=== PATIENT | female | born 1985 | race Caucasian/White ===

== ENCOUNTER 2019-07-13 15:55 | Outpatient (CLI) | payer OTHER, SELFPAY ==
[2019-07-13 16:11] LABS: Basophils Absolute Auto 0.03 K/mm3 (0.00-0.10); Basophils Percent Auto 0.4 % (0.0-1.0); Eosinophils Absolute Auto 0.06 K/mm3 (0.02-0.50); Eosinophils Percent Auto 0.7 % (1.0-6.0); Hematocrit 41.1 % (35.0-49.0); Hemoglobin 13.4 g/dL (12.0-15.0); Immature Granulocyte Absolute 0.02 K/mm3 (0.00-0.00); Immature Granulocyte Percent A 0.2 % (0.0-0.0); Lymphocytes Absolute Auto 2.32 K/mm3 (1.10-4.50); Lymphocytes Percent Auto 27.6 % (18.0-42.0); Mean Corpuscular HGB Conc 32.6 g/dL (32.0-36.0); Mean Corpuscular Hemoglobin 29.7 pg (27.0-31.0); Mean Corpuscular Volume 91.1 fL (78.0-102.0); Mean Platelet Volume 11.2 fl (9.2-11.8); Monocytes Percent Auto 7.1 % (2.0-11.0); Neutrophils Absolute Auto 5.4 K/mm3 (1.7-7.2); Platelet Count Result 243 K/mm3 (150-420); Red Blood Count 4.51 M/mm3 (4.20-5.40); Red Cell Distribution Width 11.9 % (11.6-14.4); White Blood Count 8.4 K/mm3 (4.8-10.8)
[2019-07-13 17:27] LABS: Alanine Aminotransferase 35 U/L (14-59); Albumin Level 4.4 g/dL (3.4-5.0); Alkaline Phosphatase 57 U/L (46-116); Anion Gap 12.6 mmol/L (7-16); Aspartate Amino Transferase 21 U/L (15-37); Bilirubin,Total 0.5 mg/dL (0.00-1.00); Blood Urea Nitrogen 12 mg/dL (7-18); Calcium 9.2 mg/dL (8.5-10.1); Carbon Dioxide 30 mmol/L (21-32); Chloride 105 mmol/L (98-108); Estimated Glomerular Filt Rate > 60; Glucose 73 mg/dL (70-99); Osmolality Calculated 294 mOsm/kg (285-295); Potassium 4.6 mmol/L (3.5-5.1); Sodium 143 mmol/L (136-145); Total Protein 7.6 g/dL (6.4-8.2)
== END 2019-07-13 15:56 | disposition home or self-care (01) ==
LOC: CHSLAB 15:57
PROVIDERS: PCP Family Medicine; Visit Provider Family Medicine
DX: R10.31 Right lower quadrant pain (principal)
CPT/HCPCS: 36415; 80053; 85025

== ENCOUNTER 2019-07-30 18:13 | Emergency (ER) | payer OTHER, SELFPAY ==
[2019-07-30 18:22] VITALS: BP 123/72; PULSE 70; RESP 16; TEMP 36.5; O2SAT 100
--- NOTE | 2019-07-30 18:45 | ECG_ITS ---
Measurements Intervals [place] Rate: 68 P: 61 NV: 154 QRS: 63 QRSD: 96 T: 46 QT: 379 QTc: 404 Interpretive Statements SINUS RHYTHM INCOMPLETE RIGHT BUNDLE BRANCH BLOCK BORDERLINE ECG Electronically Signed On 07-31-2019 7:15:34 RETAIL LOAN ORIGINATOR ASSISTANT by Butch Hale D.O.
[2019-07-30 19:09] LABS: Basophils Absolute Auto 0.03 K/mm3 (0.00-0.10); Basophils Percent Auto 0.4 % (0.0-1.0); Eosinophils Absolute Auto 0.13 K/mm3 (0.02-0.50); Eosinophils Percent Auto 1.9 % (1.0-6.0); Hematocrit 39.3 % (35.0-49.0); Hemoglobin 13.2 g/dL (12.0-15.0); Immature Granulocyte Absolute 0.03 K/mm3 (0.00-0.00); Immature Granulocyte Percent A 0.4 % (0.0-0.0); Lymphocytes Absolute Auto 2.57 K/mm3 (1.10-4.50); Lymphocytes Percent Auto 36.8 % (18.0-42.0); Mean Corpuscular HGB Conc 33.6 g/dL (32.0-36.0); Mean Corpuscular Hemoglobin 30.1 pg (27.0-31.0); Mean Corpuscular Volume 89.5 fL (78.0-102.0); Mean Platelet Volume 10.9 fl (9.2-11.8); Monocytes Absolute Auto 0.47 K/mm3 (0.10-0.90); Monocytes Percent Auto 6.7 % (2.0-11.0); Neutrophils Absolute Auto 3.8 K/mm3 (1.7-7.2); Neutrophils Percent Auto 53.8 % (50.0-70.0); Platelet Count Result 230 K/mm3 (150-420); Red Blood Count 4.39 M/mm3 (4.20-5.40); Red Cell Distribution Width 11.9 % (11.6-14.4)
[2019-07-30 19:25] LABS: D Dimer 0.21 mg/L (0.19-0.50)
[2019-07-30 19:27] LABS: Alanine Aminotransferase 28 U/L (14-59); Albumin Level 4.2 g/dL (3.4-5.0); Alkaline Phosphatase 54 U/L (46-116); Anion Gap 12.9 mmol/L (7-16); Aspartate Amino Transferase 21 U/L (15-37); Bilirubin,Total 0.4 mg/dL (0.00-1.00); Blood Urea Nitrogen 13 mg/dL (7-18); Calcium 9.1 mg/dL (8.5-10.1); Carbon Dioxide 30 mmol/L (21-32); Chloride 104 mmol/L (98-108); Estimated CRCL calculation 64 ml/min; Estimated Glomerular Filt Rate > 60; Glucose 80 mg/dL (70-99); Osmolality Calculated 295 mOsm/kg (285-295); Potassium 3.9 mmol/L (3.5-5.1); Sodium 143 mmol/L (136-145); Total Protein 7.6 g/dL (6.4-8.2)
--- NOTE | 2019-07-30 19:45 | ED.CHESTPAIN ---
HPI - Chest Pain General Chief Complaint: Chest Pain Stated Complaint: chest pain Source: patient Mode of arrival: ambulatory Limitations: no limitations History of Present Illness HPI narrative: this is a 34-year-old female with no significant past medical history currently not a smoker not on control in a long history of travel, recently had exposure to a viral syndrome with some runny nose mild coughing and pain in her left lower chest and rib area with deep inspiration are currently no cough no shortness of breath the pain has resolved she says it is episodic and comes and goes mainly with deep inspiration with no nausea or vomiting and no chest pressure no radiation into her left arm or jaw or neck area no diaphoresis. complaint: chest pain Onset (ago): day(s) Timing of current episode: episodic and now resolved Onset: other ( deep inspiration) Pain radiation: none Quality: dull Context: recent illness Related Data Allergies Allergy/AdvReac Type Severity Reaction Status Date / Time No Known Allergies Allergy Unknown Verified 01/21/17 08:08 Review of Systems Review of Systems: All systems reviewed & are unremarkable except as noted in HPI and below PMFSH Past Medical History Medical History Migraine Surgical History Surgical History History of ovarian cystectomy laparoscopy Family History Family History Grandparent Hypertension Acute myocardial infarction Lymphoma Mother Thyroid cancer Social History Social History Smoking status: Never smoker Alcohol intake: never Substance use: unknown Additional occupation/education comments: cosomotologist Exam Const: General: no acute distress and alert Orientation/consciousness: patient oriented x3 HENMT: Head: normal to inspection Eyes: Pupils: Equal, round and reactive pupils present Neck: Neck: normal visual inspection and no lymphadenopathy Chest: Chest palpation & inspection: abnormal inspection of the chest Resp: Effort & Inspection: normal respiratory effort Auscultation: clear to auscultation bilaterally Cardio: Rate: regular rate Rhythm: regular rhythm GI: Auscultation: normal bowel sounds : General: Yes no CVA tenderness Back/Spine/Pelvis: Back: no CVA tenderness Skin: General skin exam: normal color Rashes: no rashes Neuro: General: patient oriented x3, moves all extremities, no meningeal signs and no focal motor deficits Extrem: General: normal to inspection and no pedal edema Psych: Mental Status: mental status grossly normal Course Vital Signs Vital signs: Vital Signs Temperature 36.5 C 07/30/19 18:22 Pulse Rate 70 07/30/19 18:22 Respiratory Rate 16 07/30/19 18:22 Blood Pressure 123/72 07/30/19 18:22 Pulse Oximetry 100 07/30/19 18:22 Temperature 36.5 C 07/30/19 18:22 Pulse Rate 70 07/30/19 18:22 Respiratory Rate 16 07/30/19 18:22 Blood Pressure 123/72 07/30/19 18:22 Pulse Oximetry 100 07/30/19 18:22 MDM - Chest Pain Lab Data Attestation: I reviewed the patient's lab results. Result diagrams: 07/30/19 19:05 07/30/19 19:05 Labs: Lab Results 07/30/19 07/30/19 07/30/19 Range/Units 19:05 19:05 19:05 WBC 7.0 (4.8-10.8) K/mm3 RBC 4.39 (4.20-5.40) M/mm3 Hgb 13.2 (12.0-15.0) g/dL Hct 39.3 (35.0-49.0) % MCV 89.5 (78.0-102.0) fL MCH 30.1 (27.0-31.0) pg MCHC 33.6 (32.0-36.0) g/dL RDW 11.9 (11.6-14.4) % Plt Count 230 (150-420) K/mm3 MPV 10.9 (9.2-11.8) fl Immature Gran % (Auto) 0.4 H (0.0-0.0) % Neut % (Auto) 53.8 (50.0-70.0) % Lymph % (Auto) 36.8 (18.0-42.0) % [place] % (Auto) 6.7 (2.0-11.0) % Eos % (Auto) 1.9 (1.0-6.0) % Baso % (
[2019-07-30 20:02] VITALS: BP 108/66; PULSE 67; RESP 16; O2SAT 100
== END 2019-07-30 20:03 | disposition home or self-care (01) ==
PROVIDERS: Emergency Provider Emergency Medicine; PCP Family Medicine
DX: R09.1 Pleurisy (principal)
CPT/HCPCS: 36415; 80053; 85025; 85380; 93005; 99283

== ENCOUNTER 2019-12-15 07:47 | Outpatient (CLI) | payer OTHER, SELFPAY ==
--- NOTE | ~2019-12-15 | US_ITS ---
US right upper quadrant INDICATION: Right upper quadrant pain PROCEDURE: Realtime right upper abdominal ultrasound. COMPARISON: No prior studies for comparison. FINDINGS: The pancreas is normal without focal mass or pancreatic ductal dilation. Liver echotexture is normal without focal mass or intrahepatic biliary dilatation. There is normal directional flow i n the portal vein. The gallbladder is normal without stones, gallbladder wall thickening or pericholecystic fluid. Comm on bile duct measures 3 mm. No sonographic Gonzalez's sign. IMPRESSION: 1: Normal limited abdominal ultrasound. Reviewed, dictated and finalized at location B.
== END 2019-12-15 07:48 | disposition home or self-care (01) ==
LOC: ANHIMG 07:50
PROVIDERS: PCP Family Medicine; Visit Provider Surgery
DX: R10.11 Right upper quadrant pain (principal)
CPT/HCPCS: 76705

== ENCOUNTER 2020-06-10 16:28 | Outpatient (CLI) | payer OTHER, SELFPAY ==
--- NOTE | ~2020-06-10 | US_ITS ---
EXAMINATION: US OB limited EXAM DATE: 06/10/2020 17:42 INDICATION: Leaking @ 23 weeks. Check amniotic fluid index. 2nd trimester. TECHNIQUE: Pelvic obstetrical transabdominal sonogram was performed by a technologist. There are mu ltiple grayscale and Doppler images available for interpretation. There are no earlier studies of th is gestation for comparison. FINDINGS: There is a single fetus identified in vertex presentation with a heart rate of 131 beats p er minute. The placenta is located in the posterior position. There is no sonographic evidence of re troplacental hemorrhage identified. The amniotic fluid index is 14.4 centimeters, which is normal. IMPRESSION: 1. Single fetus in vertex presentation with heart rate 131 beats per minute. 2. Normal TIMUR 14.4 cm. Reviewed, dictated and finalized at location A. ATION SPECIALIST
[2020-06-10 17:00] VITALS: BP 115/73; PULSE 82
[2020-06-10 17:15] VITALS: BP 108/67; PULSE 82
--- NOTE | 2020-06-10 17:23 | PC.NURSE ---
Dr Blancas notified of adm c/o leaking, negative ROM plus, Uterine irritability. US ordered.
--- NOTE | 2020-06-10 17:23 | PM.OBTRLD ---
OB - Triage/Final Diagnosis Visit Information Date of evaluation: 06/10/20 Reason for evaluation: other (leaking fluid) Evaluation Vital signs: Vital Signs - 24 hr 06/10/20 17:00 06/10/20 17:15 Pulse Rate 82 82 Blood Pressure 115/73 108/67
[2020-06-10 17:54] VITALS: BP 115/73; PULSE 83
[2020-06-10 18:09] LABS: Add Urine Microscopic? NO; Appearance Urine Clear (Clear); Bilirubin Urine Negative (Negative); Blood Urine Negative (Negative); Color Urine Colorless (Yellow); Glucose Urine UA Negative (Negative); Ketones Urine Negative (Negative); Leukocyte Esterase Ur Negative LEU/UL (NEGATIVE); Nitrate Urine Negative (Negative); Protein Urine Negative (Negative); Specific Grav Ur 1.009 (1.001-1.035); Urobilinogen Urine Negative mg/dL (<2.0)
== END 2020-06-10 17:57 | disposition home or self-care (01) ==
LOC: ANHOBOP 16:33 → ANHOBPP 16:33
PROVIDERS: PCP Family Medicine; Visit Provider Obstetrics & Gynecology
DX: O42.90 Premature rupture of membranes, unspecified as to length of time between rupture and onset of labor, unspecified weeks of gestation (principal); Z3A.23 23 weeks gestation of pregnancy
CPT/HCPCS: 59025; 76815; 81003; 84112; 87086; 99199

== ENCOUNTER 2020-07-21 09:23 | Outpatient (RCR) | payer OTHER, SELFPAY ==
[2020-07-22] MEDS: RHO(D) IMMUNE GLOBULIN 300 MCG SYRINGE IM (17:02)
== END 2020-10-19 23:59 | disposition home or self-care (01) ==
LOC: ANHLAB 09:23
PROVIDERS: PCP Family Medicine; Visit Provider Obstetrics & Gynecology
DX: Z29.13 Encounter for prophylactic Rho(D) immune globulin (principal); O36.0190 Maternal care for anti-D [Rh] antibodies, unspecified trimester, not applicable or unspecified; O09.519 Supervision of elderly primigravida, unspecified trimester; Z3A.00 Weeks of gestation of pregnancy not specified
CPT/HCPCS: 36415; 85461; 90384; 96372; J2790

== ENCOUNTER 2020-09-01 17:10 | Outpatient (CLI) | payer OTHER, SELFPAY ==
[2020-09-01 19:37] LABS: SARS-CoV-2 RNA PCR Negative (Negative)
== END 2020-09-01 17:11 | disposition home or self-care (01) ==
LOC: CHSLAB 17:13
PROVIDERS: PCP Family Medicine; Visit Provider Nurse Practitioner Family
DX: J06.9 Acute upper respiratory infection, unspecified (principal); Z20.822 Contact with and (suspected) exposure to COVID-19
CPT/HCPCS: C9803; U0003; U0005

== ENCOUNTER 2020-09-26 13:00 | Outpatient (CLI) | payer OTHER, SELFPAY ==
[2020-09-26 13:29] VITALS: BP 119/86; PULSE 92
[2020-09-26 13:43] LABS: Basophils Percent Auto 0.1 % (0.2-1.2); Eosinophils Percent Auto 0.3 % (0-4.4); Hematocrit 33.1 % (37.0-47.0); Hemoglobin 10.3 g/dL (12.0-15.0); Immature Granulocyte Absolute 0.05 K/mm3 (0.00-0.031); Immature Granulocyte Percent A 0.6 % (0-0.5); Immature Platelet Fraction Pct 20.9 % (0.9-11.2); Lymphocytes Absolute Auto 1.32 K/mm3 (0.9-3.2); Mean Corpuscular HGB Conc 31.1 g/dl (32-36); Mean Corpuscular Hemoglobin 25.9 pg (26-34); Mean Corpuscular Volume 83.2 fl (80-100); Mean Platelet Volume 12.9 fl (7.4-10.4); Monocytes Absolute Auto 0.5 K/mm3 (0.1-0.6); Monocytes Percent Auto 6.7 % (2.6-8.5); Neutrophils Absolute Auto 5.9 K/mm3 (1.3-6.7); Neutrophils Percent Auto 75.3 % (45.5-73.1); Platelet Count Result 174 k/mm3 (150-375); Red Blood Count 3.98 M/mm3 (4.2-5.4); Red Cell Distribution Width 14.4 % (11.5-14.5); White Blood Count 7.8 K/mm3 (4.5-10.0)
[2020-09-26 13:45] VITALS: BP 128/85; PULSE 77
[2020-09-26 13:46] LABS: Add Urine Microscopic? YES; Appearance Urine Cloudy (Clear); Bacteria Urine Trace /hpf; Bilirubin Urine Negative (Negative); Blood Urine Negative (Negative); Color Urine Yellow (Yellow); Glucose Urine UA Negative (Negative); Ketones Urine Negative (Negative); Leukocyte Esterase Ur Negative LEU/UL (NEGATIVE); Nitrate Urine Negative (Negative); Protein Urine 1+ mg/dL (Negative); RBC Urine 0-2 /hpf (0-2); Specific Grav Ur 1.018 (1.001-1.035); Squamous Epithelial Cell Urine Occasional /hpf (Few); Urobilinogen Urine Negative mg/dL (<2.0); WBC Urine 0-3 /hpf (0-3)
[2020-09-26 13:50] LABS: Alanine Aminotransferase 12 U/L (4-35); Albumin Level 3.8 g/dL (3.5-5.1); Alkaline Phosphatase 138 U/L (38-126); Anion Gap 4 mmol/L (8-16); Aspartate Amino Transferase 28 U/L (14-36); Bilirubin,Total 0.5 mg/dL (0.2-1.3); Blood Urea Nitrogen 10 mg/dL (7-17); Calcium 9.2 mg/dL (8.4-10.2); Carbon Dioxide 24 mmol/L (22-30); Chloride 105 mmol/L (98-107); Estimated Glomerular Filt Rate > 60; Glucose 94 mg/dL (65-105); Potassium 4.2 mmol/L (3.4-5.0); Sodium 133 mmol/L (137-145); Uric Acid 5.1 mg/dL (2.5-7.5)
[2020-09-26 14:01] VITALS: BP 128/77; PULSE 84
== END 2020-09-26 14:20 | disposition home or self-care (01) ==
LOC: ANHOBOP 13:16 → ANHOBPP 13:18
PROVIDERS: PCP Family Medicine; Visit Provider Obstetrics & Gynecology
DX: O13.9 Gestational [pregnancy-induced] hypertension without significant proteinuria, unspecified trimester (principal); Z3A.00 Weeks of gestation of pregnancy not specified
CPT/HCPCS: 36415; 59025; 80053; 81001; 84550; 85025; 85055; 87086; 99199

== ENCOUNTER 2020-09-28 04:52 | Inpatient (IN) | payer OTHER, SELFPAY ==
[2020-09-28] VITALS (63 sets, daily range): BP systolic 101–161; BP diastolic 56–110; PULSE 56–104; RESP 14–20; TEMP 36.4–37.1; O2SAT 97–100
--- NOTE | 2020-09-28 05:36 | LDADM ---
This patient, Urvashi Cain, was admitted to Labor/Delivery/Recovery 103 on 09/28/20 at 04:52. Plans for labor, pain management and were discussed with patient. Patient/family oriented to hospital policies and general routines including ID bracelet, bed and alarms, visiting hours, pain management, procedures, bathroom and other care routines, personal items, smoking policy, room service/diet and guest tray routines, security routines, and visiting hours. Patient/Family are encouraged to report perceived risks to care and to ask questions if they do not understand what they are told or what they should do. See OBIX for further documentation.
[2020-09-28 05:40] LABS: Basophils Percent Auto 0.2 % (0.2-1.2); Eosinophils Absolute Auto 0.1 K/mm3 (0-0.3); Eosinophils Percent Auto 1.3 % (0-4.4); Hematocrit 31.8 % (37.0-47.0); Hemoglobin 9.6 g/dL (12.0-15.0); Immature Granulocyte Absolute 0.08 K/mm3 (0.00-0.031); Immature Granulocyte Percent A 0.9 % (0-0.5); Immature Platelet Fraction Pct 20.5 % (0.9-11.2); Lymphocytes Absolute Auto 2.11 K/mm3 (0.9-3.2); Lymphocytes Percent Auto 24.9 % (18.3-44.2); Mean Corpuscular HGB Conc 30.2 g/dl (32-36); Mean Corpuscular Hemoglobin 25.1 pg (26-34); Mean Corpuscular Volume 83.2 fl (80-100); Mean Platelet Volume 13.4 fl (7.4-10.4); Monocytes Absolute Auto 0.9 K/mm3 (0.1-0.6); Monocytes Percent Auto 10.5 % (2.6-8.5); Neutrophils Absolute Auto 5.3 K/mm3 (1.3-6.7); Neutrophils Percent Auto 62.2 % (45.5-73.1); Platelet Count Result 167 k/mm3 (150-375); Red Blood Count 3.82 M/mm3 (4.2-5.4); Red Cell Distribution Width 14.6 % (11.5-14.5); White Blood Count 8.5 K/mm3 (4.5-10.0)
[2020-09-28] MEDS: LACTATED RINGERS 1,000 ML 125 ML IV CONT ×2 (05:45→08:28)
[2020-09-28] MEDS: OXYTOCIN 30 UNITS/NS 500 ML 30 UNITS/500 ML BAG IV CONT (05:45)
--- NOTE | 2020-09-28 07:56 | PM.IMHP ---
H&P: HPI History of Present Illness Date/Time: 09/28/20 07:56 35-year-old whose last menstrual period was 01/10/2020, EDC is 10/04/2020, presents at39+ weeks gestation for induction of labor. Cervix is favorable and has been uncomplicated. Chief Complaint: induction of labor at term Review of Systems Review of Systems: All systems reviewed & are unremarkable except as noted in HPI and below PMFSH Past Medical History Medical History Migraine Surgical History Surgical History History of ovarian cystectomy laparoscopy Family History Family History Grandparent Acute myocardial infarction Lymphoma Hypertension Mother Thyroid cancer Sibling Crohn disease Father Hypertension Social History Social History Smoking status: Never smoker Alcohol intake: never Substance use: never Additional occupation/education comments: cosomotologist Gender identity (if verbalized by the patient): Female Spiritual care concerns: No Meds Home Medications and Allergies Home Medications Medication Instructions Recorded Confirmed Type No Home Medications 12/22/19 09/08/20 History Allergies Allergy/AdvReac Type Severity Reaction Status Date / Time No Known Allergies Allergy Unknown Verified 12/22/19 08:40 Vital Signs Vital Signs - 24 hr 09/28/20 05:31 09/28/20 05:46 09/28/20 05:57 Temperature 97.5 F L Pulse Rate 83 84 Blood Pressure 134/97 H 141/87 H 09/28/20 06:01 09/28/20 06:16 09/28/20 06:26 Temperature 98.1 F Pulse Rate 81 77 Blood Pressure 144/91 H 144/88 H 09/28/20 06:31 09/28/20 06:46 09/28/20 07:01 Temperature Pulse Rate 72 69 76 Blood Pressure 135/82 120/74 131/85 09/28/20 07:16 09/28/20 07:31 09/28/20 07:46 Temperature Pulse Rate 70 76 68 Blood Pressure 128/79 105/66 108/60 Exam Const: General: no acute distress Eyes: General: appearance normal, both eyes and all related structures Neck: Neck: supple and no JVD Thyroid: thyroid normal Resp: Effort & Inspection: normal respiratory effort Auscultation: clear to auscultation bilaterally Cardio: Rate: regular rate Rhythm: regular rhythm GI: Inspection: non-distended GI Palp: Yes Soft to palpation, No Tenderness to palpation present (GI) and No Guarding due to palpation present (GI) Auscultation: normal bowel sounds : External Female Exam: normal external appearance Speculum Exam - Vagina: normal appearance of the vagina Speculum Exam - Cervix: Cervical os closed (cx 3/75/0. arom clear. fhts ok) Skin: General skin exam: no rashes or lesions noted Extrem: General: normal to inspection and no edema Psych: Mental Status: mental status grossly normal Affect: normal affect H&P: Results Labs Labs: Short CBC 09/28/20 Range/Units 05:19 WBC 8.5 (4.5-10.0) K/mm3 Hgb 9.6 L (12.0-15.0) g/dL Hct 31.8 L (37.0-47.0) % Plt Count 167 (150-375) k/mm3 Assessment and Plan Additional Plan Impression: Term with favorable cervix Plan: Medical induction of labor. Spontaneous vaginal delivery is expected. She has an epidural candidate
--- NOTE | 2020-09-28 10:06 | WPDANESEPP ---
Anes - Eval Pre Procedure Procedure: labor epidural Date/Time: 09/28/20 10:06 Surgeon: carolann Preop Diagnosis: pain during labor Pre Op Diagnosis: Induction Patient Data Age: 35 Gender: F Height: Weight: Last Vital Signs Temp 36.9 C 09/28/20 09:52 Pulse 68 09/28/20 10:01 BP 117/79 09/28/20 10:01 Allergies Allergy/AdvReac Type Severity Reaction Status Date / Time No Known Allergies Allergy Unknown Verified 12/22/19 08:40 Home Medications Medication Instructions Recorded Confirmed Type No Home Medications 12/22/19 09/08/20 History Laboratory Tests 09/28/20 09/28/20 09/28/20 05:18 05:19 05:19 WBC 8.5 K/mm3 K/mm3 (4.5-10.0) RBC 3.82 M/mm3 L M/mm3 (4.2-5.4) Hgb 9.6 g/dL L g/dL (12.0-15.0) Hct 31.8 % L % (37.0-47.0) MCV 83.2 fl fl (80-100) MCH 25.1 pg L pg (26-34) MCHC 30.2 g/dl L g/dl (32-36) RDW 14.6 % H % (11.5-14.5) Plt Count 167 k/mm3 k/mm3 (150-375) MPV 13.4 fl H fl (7.4-10.4) Immature Gran % (Auto) 0.9 % H % (0-0.5) Neut % (Auto) 62.2 % % (45.5-73.1) Lymph % (Auto) 24.9 % % (18.3-44.2) Iron % (Auto) 10.5 % H % (2.6-8.5) Eos % (Auto) 1.3 % % (0-4.4) Baso % (Auto) 0.2 % % (0.2-1.2) Lymph # (Auto) 2.11 K/mm3 K/mm3 (0.9-3.2) Iron # (Auto) 0.9 K/mm3 H K/mm3 (0.1-0.6) Eos # (Auto) 0.1 K/mm3 K/mm3 (0-0.3) Baso # (Auto) 0.0 K/mm3 K/mm3 (0.0-0.1) Abs Immat Gran (auto) 0.08 K/mm3 H K/mm3 (0.00-0.031) Absolute Neuts (auto) 5.3 K/mm3 K/mm3 (1.3-6.7) Absolute Nucleated RBC 0.0 K/mm3 K/mm3 (0.0-0.012) Nucleated RBC % 0.0 % % (0.0-0.2) % Immature Plt Fraction 20.5 % H % (0.9-11.2) RPR Pending Blood Type A Negative Antibody Screen Positive Antibody Identification Passive Due to RH Imm Glob Antigen Identification TNP HALI, IgG Interpret Not Performed HALI, Poly Interpret Negative HALI, Complement Interp Not Performed : gestational age (SHEKHAR 10/04/2020) Patient hx anesthesia problems: none Family hx anesthesia problems: none PMFSH Past Medical History Medical History Migraine Surgical History Surgical History History of ovarian cystectomy laparoscopy Family History Family History Grandparent Acute myocardial infarction Lymphoma Hypertension Mother Thyroid cancer Sibling Crohn disease Father Hypertension Social History Social History Smoking status: Never smoker Alcohol intake: never Substance use: never Additional occupation/education comments: cosomotologist Gender identity (if verbalized by the patient): Female Spiritual care concerns: No Exam Day of Procedure 09/28/20 10:06 Patient weight: normal Heart: regular rate and rhythm Lungs: clear to auscultation and normal air movement Neurological: alert and oriented
[2020-09-28 10:50] LABS: Rapid Plasma Reagin Non-Reactive (NonReactive)
--- NOTE | 2020-09-28 11:14 | P.PNOB_ITS ---
OB - PN: Subj Subjective Date/time seen: 09/28/20 11:14 fhts ok epidural in/working OB - PN: Obj Data Labs CBC & Chem 7: 09/28/20 05:19 Labs: Laboratory Results - last 24 hr 09/28/20 09/28/20 09/28/20 05:18 05:19 05:19 WBC 8.5 RBC 3.82 L Hgb 9.6 L Hct 31.8 L MCV 83.2 MCH 25.1 L MCHC 30.2 L RDW 14.6 H Plt Count 167 MPV 13.4 H Immature Gran % (Auto) 0.9 H Neut % (Auto) 62.2 Lymph % (Auto) 24.9 [place] % (Auto) 10.5 H Eos % (Auto) 1.3 Baso % (Auto) 0.2 Lymph # (Auto) 2.11 [place] # (Auto) 0.9 H Eos # (Auto) 0.1 Baso # (Auto) 0.0 Abs Immat Gran (auto) 0.08 H Absolute Neuts (auto) 5.3 Absolute Nucleated RBC 0.0 Nucleated RBC % 0.0 % Immature Plt Fraction 20.5 H RPR Non-reactive Blood Type A Negative Antibody Screen Positive Antibody Identification Passive Due to RH Imm Glob Antigen Identification TNP HALI, IgG Interpret Not Performed HALI, Poly Interpret Negative HALI, Complement Interp Not Performed OB - PN A/P Time Spent With Patient Time: Total time spent is greater than 50% in coordination of care (as documented) at patient's floor/unit and/or counseling patient:
--- NOTE | 2020-09-28 13:41 | P.PCNOB_ITS ---
OB - Delivery Note Procedure Delivery date: 09/28/20 Procedure: mil Intrapartal events: None Induction method: AROM Delivery augmentation: pitocin Delivery monitor: external FHT Route of delivery: Episiotomy description: None Laceration Description: Perineal - 2nd Degree Delivery repair: vicryl Specimen: No Quantitative Blood Loss (ml): 58 Anesthesia type: Epidural Disposition: floor [place] Baby Date of : 09/28/20 Time of : 13:31 Weeks of gestation at delivery: 39 Infant gender: Female presentation: vertex position: Right Occiput Anterior Placenta delivery description: Spontaneous cord vessel description: 3 Vessels score one minute: 8 score five minutes: 9
[2020-09-28] MEDS: OXYTOCIN 30 UNITS/NS 500 ML 30 UNITS/500 ML BAG 125 UNITS IV CONT (14:05)
[2020-09-28] MEDS: BENZOCAINE 20% AER SPR (*SP) 56 GM CAN 1 SPRAY TOPICAL (16:13)
[2020-09-28] MEDS: WITCH HAZEL 40 PADS 1 PAD TOPICAL (16:13)
--- NOTE | 2020-09-28 16:30 | PC.NURSE ---
Patient transferred to post room #284 per wheelchair from labor and delivery. Support person present. Oriented to unit, room, information board, rooming in, admission packet and security measures. Patient verbalizes understanding.
[2020-09-28] MEDS: IBUPROFEN 600 MG TABLET PO (17:40)
[2020-09-28] MEDS: ACETAMINOPHEN 325 MG TABLET 650 MG PO (22:43)
[2020-09-29 00:10] VITALS: BP 121/62; PULSE 70; RESP 14; TEMP 37.2
[2020-09-29 05:41] LABS: Hematocrit 29.8 % (37.0-47.0); Hemoglobin 9.2 g/dL (12.0-15.0)
[2020-09-29 05:48] VITALS: BP 129/80; PULSE 72; RESP 15; TEMP 37.1
--- NOTE | 2020-09-29 07:48 | PM.DS ---
DS: Admitting Diagnosis Admitting Diagnosis Admitting Diagnosis: Term with favorable cervix DS: Summary Hospital Course Hospital Course: the patient was admitted for induction of labor. She underwent unremarkable spontaneous vaginal delivery. 24hour course was unremarkable. She remained afebrile. She was, ambulating, voiding the difficulty, and generally without complaints Time Spent with Patient Time attestation: Total time spent providing and/or coordinating discharge services: Exam Const: General: no acute distress Eyes: General: appearance normal, both eyes and all related structures Neck: Neck: supple and no JVD Thyroid: thyroid normal Resp: Effort & Inspection: normal respiratory effort Auscultation: clear to auscultation bilaterally Cardio: Rate: regular rate Rhythm: regular rhythm GI: Inspection: non-distended GI Palp: Yes Soft to palpation, No Tenderness to palpation present (GI) and No Guarding due to palpation present (GI) Auscultation: normal bowel sounds : General: Yes bladder normal to palpation External Female Exam: normal external appearance Speculum Exam - Vagina: normal vaginal discharge and No vaginal bleeding Speculum Exam - Cervix: nontender Bimanual exam- vagina & uterus: bladder normal to palpation and No Cervical tenderness present OB/external & speculum: No vaginal bleeding Skin: General skin exam: no rashes or lesions noted Extrem: General: normal to inspection and no edema Psych: Mental Status: mental status grossly normal Affect: normal affect DS: Data Data Completed and Pending Labs on day of discharge: Labs from last 24 hours 09/29/20 09/29/20 09/28/20 05:00 04:59 05:19 Hgb 9.2 L Hct 29.8 L RPR Blood Type A Negative A Negative Antibody Screen TNP Positive Antibody Identification Passive Due to RH Imm Glob Antigen Identification TNP HALI, IgG Interpret Not Performed HALI, Poly Interpret Negative HALI, Complement Interp Not Performed Screen Negative Baby's Blood Type O pos Baby's HALI Negative Doses of RhIg Required 1 09/28/20 05:18 Hgb Hct RPR Non-reactive Blood Type Antibody Screen Antibody Identification Antigen Identification HALI, IgG Interpret HALI, Poly Interpret HALI, Complement Interp Screen Baby's Blood Type Baby's HALI Doses of RhIg Required Discharge Plan Discharge Attending physician on discharge: Israel Day Discharging Clinician: Israel Day Patient Disposition: Home, Self-Care Activity: may shower, no straining and pelvic rest Diet: heart healthy Wound Care Instructions: follow printed instructions Patient Instructions: Antibiotic Form Stand Alone Forms: General Discharge Information Follow-up/Referrals: Israel Day MD [Physician] - Discharge Medications: No Action No Home Medications RF: 0 Date of admission: 09/28/20 04:52 Primary Care Provider: Cem Carrillo Admitting Provider: Israel Day Attending physician on admission: Israel Day Condition: Stable
--- NOTE | 2020-09-29 07:50 | P.PNOB_ITS ---
OB - PN: Subj Subjective Date/time seen: 09/29/20 07:50 Patient comments: no complaints and pain well controlled baby status: doing well OB - PN: Obj Data Labs CBC & Chem 7: 09/29/20 04:59 Labs: Laboratory Results - last 24 hr 09/28/20 09/28/20 09/29/20 05:18 05:19 04:59 Hgb 9.2 L Hct 29.8 L RPR Non-reactive Blood Type A Negative Antibody Screen Positive Antibody Identification Passive Due to RH Imm Glob Antigen Identification TNP HALI, IgG Interpret Not Performed HALI, Poly Interpret Negative HALI, Complement Interp Not Performed Screen Baby's Blood Type Baby's HALI Doses of RhIg Required 09/29/20 05:00 Hgb Hct RPR Blood Type A Negative Antibody Screen TNP Antibody Identification Antigen Identification HALI, IgG Interpret HALI, Poly Interpret HALI, Complement Interp Screen Negative Baby's Blood Type O pos Baby's HALI Negative Doses of RhIg Required 1 OB - PN A/P Plan day: 1 Plan: routine care, discharge home and follow up 6 weeks Time Spent With Patient Time: Total time spent is greater than 50% in coordination of care (as d ocumented) at patient's floor/unit and/or counseling patient: Time with patient: less than 15 minutes Review of Systems Review of Systems: All systems reviewed & are unremarkable except as noted in HPI and below Exam Const: General: no acute distress Eyes: General: appearance normal, both eyes and all related structures Neck: Neck: supple and no JVD Thyroid: thyroid normal Resp: Effort & Inspection: normal respiratory effort Auscultation: clear to auscultation bilaterally Cardio: Rate: regular rate Rhythm: regular rhythm GI: Inspection: non-distended GI Palp: Yes Soft to palpation, No Tenderness to palpation present (GI) and No Guarding due to palpation present (GI) Auscultation: normal bowel sounds : General: Yes bladder normal to palpation External Female Exam: normal external appearance Speculum Exam - Vagina: normal vaginal discharge and No vaginal bleeding Speculum Exam - Cervix: nontender Bimanual exam- vagina & uterus: bladder normal to palpation and No Cervical tenderness present OB/external & speculum: No vaginal bleeding Skin: General skin exam: no rashes or lesions noted Extrem: General: normal to inspection and no edema Psych: Mental Status: mental status grossly normal Affect: normal affect
[2020-09-29 08:00] VITALS: BP 109/64; PULSE 72; RESP 16; TEMP 37; O2SAT 100
[2020-09-29] MEDS: POLYSACCHARIDE IRON COMPLEX 150 MG CAPSULE PO (09:11)
[2020-09-29] MEDS: MULTIVIT/MIN/PREN/FOL AC/IRON TABLET 1 TAB PO (09:11)
[2020-09-29] MEDS: DOCUSATE SODIUM 100 MG CAPSULE PO (09:11)
[2020-09-29] MEDS: IBUPROFEN 600 MG TABLET PO ×2 (09:12)
--- NOTE | 2020-09-29 09:38 | WPDANLDPN2 ---
Anes-Prog Note L&D Date/Time: 09/29/20 09:38 Comfortable throughout: labor and delivery Neuraxial method: epidural Epidural/Spinal procedure site: clean & non-tender Neuro status: Neuro function grossly intact. Cardiovascular status: normal Respiratory status: normal Airway patency: baseline Mental status: baseline Post-Op hydration status: normal Vital Signs: Last Vital Signs Temp 37.0 C 09/29/20 08:00 Pulse 72 09/29/20 08:00 Resp 16 09/29/20 08:00 BP 109/64 09/29/20 08:00 Pulse Ox 100 09/29/20 08:00 Pain score (VAS): 0 I/O: Intake & Output 09/28/20 09/29/20 09/29/20 23:59 07:59 15:59 Output Total 75 Balance -75 Post-procedural complaints: none Patient feedback: Patient satisfied with anesthetic care.
--- NOTE | 2020-09-29 10:40 | PC.NURSE ---
Mother called out for assist with feeding, reporting tenderness at times. Mother reports last child now 6 yrs old. Consulted with patient, reviewed infant feeding cues, frequencies, duration of feedings, feeding elimination flow sheet, and signs of adequate intake. Demonstrated stimulation techniques to wake infant for feeding. Assisted with to breast. Reviewed positioning/alignment in cross cradle, holding breast in U hold and guided asymmetrical latch on. Infant was able to latch correctly. nursed eagerly, with steady draws and frequent swallowing noted. Reviewed signs of a correct latch, effective nursing and suck swallow ratio. Mother reported slight discomfort, has slipped to shallow latch. Demonstrated how to adjust latch more deeply while feeding. Suggested mother stimulate infant while feeding to keep infant awake and nursing effectively for stimulation of milk supply, increased intake and to assist maintain deep latch. Infant was able to maintain latch without discomfort to mother. Nipple care reviewed, lanolin provided. Instructed mother to call out for RN assistance if she is unable to latch for feeding or she has discomfort with nursing. Instructed feeding should be initiated three hours from start of last feeding or if feeding cues are noted before. Mother voiced understanding of information shared.
--- NOTE | 2020-09-29 10:58 | PC.NURSE ---
Patient was given the opportunity to view the discharge video Mother & Baby Care, The First Two Weeks and to ask questions. Patient declined viewing the video and has been given the mother/baby guide for home reference.
[2020-09-29 13:15] VITALS: BP 115/71; PULSE 69; RESP 18; TEMP 37.5; O2SAT 98
[2020-09-29] MEDS: WITCH HAZEL 40 PADS 1 PAD TOPICAL (14:08)
[2020-09-29] MEDS: RHO(D) IMMUNE GLOBULIN 300 MCG/2 ML SYRINGE IM (14:08)
[2020-09-29] MEDS: BENZOCAINE 20% AER SPR (*SP) 56 GM CAN 1 SPRAY TOPICAL (14:08)
--- NOTE | 2020-09-29 15:16 | PC.NURSE ---
Discharged patient with infant to awaiting vehicle. All questions answered and all discharge instructions given to patient.
== END 2020-09-29 15:05 | disposition home or self-care (01) | DRG 560 ==
LOC: ANHLDR 04:54 → ANHOB2 16:40
PROVIDERS: Admitting Provider Obstetrics & Gynecology; PCP Family Medicine; Visit Provider Obstetrics & Gynecology
DX: O70.1 Second degree perineal laceration during delivery (principal); Z37.0 Single live birth; Z3A.39 39 weeks gestation of pregnancy
CPT/HCPCS: 36415; 85014; 85018; 85025; 85055; 85461; 86592; 86850; 86880; 86900; 86901; 86902; 90384; A9270; J2590; J2790; J7120

== ENCOUNTER 2021-01-17 11:47 | Outpatient (CLI) | payer OTHER, SELFPAY ==
[2021-01-17 12:54] LABS: SARS-CoV-2 RNA PCR Positive (Negative)
== END 2021-01-17 11:48 | disposition home or self-care (01) ==
PROVIDERS: PCP Family Medicine; Visit Provider Nurse Practitioner Family
DX: U07.1 COVID-19 (principal)
CPT/HCPCS: C9803; U0003; U0005

== ENCOUNTER 2021-12-13 12:25 | Outpatient (CLI) | payer OTHER, SELFPAY ==
[2021-12-13 12:46] LABS: Basophils Absolute Auto 0.02 K/mm3 (0.00-0.10); Basophils Percent Auto 0.3 % (0.0-1.0); Eosinophils Absolute Auto 0.07 K/mm3 (0.02-0.50); Eosinophils Percent Auto 1.2 % (1.0-6.0); Hematocrit 40.6 % (35.0-49.0); Hemoglobin 13.2 g/dL (12.0-15.0); Immature Granulocyte Absolute 0.01 K/mm3 (0.00-0.00); Immature Granulocyte Percent A 0.2 % (0.0-0.0); Lymphocytes Absolute Auto 1.92 K/mm3 (1.10-4.50); Lymphocytes Percent Auto 32.1 % (18.0-42.0); Mean Corpuscular HGB Conc 32.5 g/dL (32.0-36.0); Mean Corpuscular Hemoglobin 29.7 pg (27.0-31.0); Mean Corpuscular Volume 91.2 fL (78.0-102.0); Mean Platelet Volume 11.5 fl (9.2-11.8); Monocytes Absolute Auto 0.45 K/mm3 (0.10-0.90); Monocytes Percent Auto 7.5 % (2.0-11.0); Neutrophils Absolute Auto 3.5 K/mm3 (1.7-7.2); Neutrophils Percent Auto 58.7 % (50.0-70.0); Platelet Count Result 242 K/mm3 (150-420); Red Blood Count 4.45 M/mm3 (4.20-5.40); Red Cell Distribution Width 12.2 % (11.6-14.4)
[2021-12-13 12:49] LABS: Add Urine Microscopic? YES; Appearance Urine Clear (Clear); Bilirubin Urine Negative (Negative); Blood Urine 1+ (Negative); Color Urine Light Yellow (Yellow); Glucose Urine UA Negative (Negative); Ketones Urine Negative (Negative); Leukocyte Esterase Ur Negative (Negative); Nitrate Urine Negative (Negative); Protein Urine Negative (Negative); Urobilinogen Urine 0.2 mg/dL (0.2-1.0); pH Urine 7.5 (5.0-8.0)
[2021-12-13 12:57] LABS: Bacteria Urine Trace /hpf; RBC Urine 0-2 /hpf (0-2); Squamous Epithelial Cell Urine Few /hpf (Few); WBC Urine None seen /hpf (0-3)
[2021-12-13 13:06] LABS: Alanine Aminotransferase 21 U/L (14-59); Albumin Level 4.1 g/dL (3.4-5.0); Alkaline Phosphatase 96 U/L (46-116); Amylase 47 U/L (25-115); Anion Gap 5 mmol/L (8-16); Aspartate Amino Transferase 13 U/L (15-37); Bilirubin,Total 0.2 mg/dL (0.00-1.00); Blood Urea Nitrogen 12 mg/dL (7-18); Calcium 9.1 mg/dL (8.5-10.1); Carbon Dioxide 30 mmol/L (21-32); Chloride 104 mmol/L (98-108); Estimated Glomerular Filt Rate > 60; Glucose 81 mg/dL (70-99); Lipase 217 U/L (73-393); Osmolality Calculated 286 mOsm/kg (285-295); Potassium 4.8 mmol/L (3.5-5.1); Sodium 139 mmol/L (136-145); Total Protein 7.4 g/dL (6.4-8.2)
[2021-12-13 14:03] LABS: Pregnancy On Board Control Positive; Urine Pregnancy Test Negative
== END 2021-12-13 12:26 | disposition home or self-care (01) ==
LOC: CHSLAB 12:27
PROVIDERS: PCP Family Medicine; Visit Provider Family Medicine
DX: R10.9 Unspecified abdominal pain (principal)
CPT/HCPCS: 36415; 80053; 81001; 81025; 82150; 83690; 85025

== ENCOUNTER 2021-12-14 07:57 | Outpatient (CLI) | payer OTHER, SELFPAY ==
--- NOTE | ~2021-12-14 | US_ITS ---
EXAMINATION: US abdomen complete DATE: 12/14/2021 08:28 INDICATION: Right upper quadrant abdominal pain. TECHNIQUE: Multiple grayscale and Doppler ultrasound images of the abdomen were obtained. COMPARISON: Ultrasound abdomen 12/15/2019 FINDINGS: The visualized portions of the head, body, and tail of the pancreas are normal. Abdominal a shlomo and inferior vena cava are normal. The liver is normal without focal lesion. There is normal roseanna w in main portal vein. The gallbladder is normal in size. No gallstones or gallbladder wall thickenin g. There is no sonographic Gonzalez sign. The common duct is normal and measures 2 mm. The kidneys are normal in size. The spleen is normal in size. IMPRESSION: 1. Normal complete abdomen ultrasound. Reviewed, dictated and finalized at location A.
== END 2021-12-14 07:58 | disposition home or self-care (01) ==
LOC: CHSIMG 07:58
PROVIDERS: PCP Family Medicine; Visit Provider Family Medicine
DX: R10.9 Unspecified abdominal pain (principal)
CPT/HCPCS: 76700

== ENCOUNTER 2022-01-09 11:03 | Emergency (ER) | payer OTHER, SELFPAY ==
[2022-01-09 11:10] VITALS: BP 116/79; PULSE 66; RESP 16; TEMP 36.4; O2SAT 100
--- NOTE | 2022-01-09 11:15 | ED.HA ---
HPI - Headache General Chief Complaint: Headache Stated Complaint: MIGRAINE Time Seen by Provider: 01/09/22 11:57 Source: patient and RN notes reviewed Mode of arrival: ambulatory Limitations: no limitations History of Present Illness MD elicited complaint: migraine Onset (ago): day(s) (2) Onset description: gradually Location: right, frontal, temporal and occipital Severity: moderate Quality & Timing: throbbing Exacerbating factors: light and noise Relieving factors: nothing Context: occurred at rest Associated symptoms: nausea and vomiting Treatments prior to arrival: other ( Excedrin) Related Data Home Medications Medication Instructions Recorded Confirmed edmgzskqtx-zrynramnfmhul-alkqzepq 1 tablet PO PRN PRN Headache 01/09/22 01/09/22 50 mg-325 mg-40 mg tablet Allergies Allergy/AdvReac Type Severity Reaction Status Date / Time No Known Allergies Allergy Unknown Verified 01/09/22 11:21 Review of Systems Review of Systems: All systems reviewed & are unremarkable except as noted in HPI and below PMFSH Past Medical History Medical History (Updated 01/09/22 @ 12:07 by Weston Canchola MD) Migraine Surgical History Surgical History History of ovarian cystectomy laparoscopy Family History Family History Grandparent Acute myocardial infarction Lymphoma Hypertension Mother Thyroid cancer Sibling Crohn disease Father Hypertension Social History Social History Smoking status: Never smoker Alcohol intake: never Substance use: never Additional occupation/education comments: cosomotologist Gender identity (if verbalized by the patient): Female Spiritual care concerns: No Exam Const: General: healthy appearing, no acute distress and alert Nutritional Appearance: well nourished Orientation/consciousness: patient oriented x3 Limitations: no limitations Other: female nurse in room during examination. HENMT: Head: normal to inspection Ears: external ears normal and TM's normal bilaterally General nose exam: Normal external nose present and Normal nares present Face and sinus: normal facial exam Eyes: Conjunctivae: conjunctivae normal Pupils: Equal, round and reactive pupils present EOM: EOMs intact bilaterally Neck: Neck: normal visual inspection and no meningeal signs Resp: Effort & Inspection: normal respiratory effort Auscultation: clear to auscultation bilaterally Cardio: Rate: regular rate Rhythm: regular rhythm GI: GI Palp: Yes Soft to palpation and No Tenderness to palpation present (GI) Auscultation: normal bowel sounds Back/Spine/Pelvis: Cervical Spine: cervical ROM normal Thoracic/Lumbar Spine: thoraco-lumbar ROM normal Skin: General skin exam: normal color Rashes: no rashes Neuro: General: patient oriented x3, moves all extremities, no focal motor deficits and CN's II-XI intact bilaterally Speech: normal speech Gait exam (Neuro): Normal gait present Extrem: General: normal to inspection and no clubbing, cyanosis or edema Psych: Mental Status: mental status grossly normal Affect: normal affect Attitude: cooperative Course Vital Signs Vital signs: Vital Signs Temperature 36.4 C L 01/09/22 11:10 Pulse Rate 66 01/09/22 11:10 Respiratory Rate 16 01/09/22 11:10 Blood Pressure 116/79 01/09/22 11:10 Pulse Oximetry 100 01/09/22 11:10 Oxygen Delivery Room Air 01/09/22 11:10 Temperature 36.7 C 01/09/22 13:00 Pulse Rate 59 L 01/09/22 13:00 Respiratory Rate 14 01/09/22 13:00 Blood Pressure 107/67 01/09/22 13:00 Pulse Oximetry 99 01/09/22 13:00 Oxygen Delivery Room Air 01/09/22 13:00 Discharge Plan Discharge Clinical Impression: Migraine Patient Disposition: Home, Self-Care Condition: Stable Instructions: Migraine Headache (ED)
[2022-01-09] MEDS: KETOROLAC 15 MG/ML VIAL (*BKC) IV PUSH (12:15)
[2022-01-09] MEDS: diphenhydrAMINE HCl INJ 50 MG/ML VIAL IV PUSH (12:16)
[2022-01-09] MEDS: METOCLOPRAMIDE HCL INJ 10 MG/2 ML VIAL IV PUSH (12:17)
[2022-01-09 13:00] VITALS: BP 107/67; PULSE 59; RESP 14; TEMP 36.7; O2SAT 99
--- NOTE | 2022-01-09 13:05 | PC.NURSE ---
1230 SIG OTHER ARRIVES TO EXAM ROOM FOR TRANSPORT HOME. PT IS RESTING WITH LIGHTS OFF.
== END 2022-01-09 13:00 | disposition home or self-care (01) ==
PROVIDERS: Emergency Provider Emergency Medicine; PCP Family Medicine
DX: G43.909 Migraine, unspecified, not intractable, without status migrainosus (principal)
CPT/HCPCS: 96374; 96375; 99284; J1200; J1885; J2765

== ENCOUNTER 2022-06-20 11:08 | Outpatient (CLI) | payer OTHER, SELFPAY ==
--- NOTE | ~2022-06-20 | US_ITS ---
Pelvic ultrasound. Clinical History: First trimester , possible demise Technique: Realtime transabdominal and transvaginal scanning of the pelvis was performed. Findings: The uterus is anteverted, and contains an intrauterine gestation. [place]-rump length of 3.8 cm corresponds to an estimated gestational age of 10 weeks 5 days. No cardiac activity seen. Cervix c losed. Neither ovary seen. No adnexal mass seen. There is no evidence of free fluid in the cul de sac. Impression: Intrauterine gestation with estimated gestational age of 10 weeks 5 days, but no cardiac activity. Th is is compatible with demise. Reviewed, dictated and finalized at location M. APPLIANCE TECHNICIAN Impression: Intrauterine gestation with estimated gestational age of 10 weeks 5 days, but n o cardiac activity. This is compatible with demise.
== END 2022-06-20 11:09 | disposition home or self-care (01) ==
LOC: ANHIMG 11:12
PROVIDERS: PCP Family Medicine; Visit Provider Obstetrics & Gynecology
DX: O20.0 Threatened abortion (principal); Z3A.10 10 weeks gestation of pregnancy
CPT/HCPCS: 76801

== ENCOUNTER 2022-06-21 02:25 | Day surgery (SDC) | payer OTHER, SELFPAY ==
[2022-06-20 12:21] VITALS: BMI 21.9
--- NOTE | 2022-06-20 12:26 | PC.NURSE ---
Report to the Outpatient Waiting Room, entrance under the green pavilion located off [facility], at time 1130 on date 06/21/22. Planned Procedure Time: 1330. Time changes happen often and if your time is changed the preop area will call you the afternoon before. - You and your visitor will be asked to self-screen and do not enter if you have any COVID symptoms. - Only one visitor is requested with a max of two and NO children visitors are allowed at this time. - The patient visitor may be requested to leave or wait in car when not with patient due to distancing restrictions. - A mask is optional within the hospital. Patients may have clear liquids (water, carbonated beverages, clear teas, apple juice) until 3 hours prior to surgery with a maximum of 20 ounces. - No food from midnight until time of surgery Take the following medications with a SIP of water the morning of surgery: MIGRAINE MED IF NEEDED Medications to discontinue per physician: N/A Date to take last dose: N/A Please no make-up, nail pakistani, hairspray, perfume, deodorant, or body powder the day of surgery. No jewelry (including any body piercings) or valuables the day of surgery, leave them at home. Please take a shower or bath the night before, or the morning of, surgery with an antibacterial soap. Wear comfortable, loose fitting clothing. - Jewelry must be removed prior to entering the operating room. Rings and piercings that are not removed may be cut off. - The hospital will not accept responsibility for valuables. - Please leave all valuables, including medications, at home the day of surgery. If you are going home after surgery, a licensed rickshaw driver must drive you home. - NO public transportation without another adult if you receive anesthesia. - We recommend that an adult stay with you for 24 hours following discharge. - We also recommend that you do not drive, make important decision, drink alcoholic beverages, or take any drugs that were not prescribed by your health care provider for at least 24 hours after your discharge time. Follow any additional instructions given to you from your surgeon. If you or anyone in your household have experienced Covid symptoms in the past week, please notify your surgeon or the nurse liaison at the phone number below for possible testing. Telephone instructions given to PT - ANDRÉS DE LA ROSA and asked if any additional questions and then verbalized understanding. Patient advised to call surgeon office or pre surgery nurse liaison [phone] if any additional questions.
--- NOTE | 2022-06-20 16:08 | PM.IMHP ---
H&P: HPI History of Present Illness Date/Time: 06/20/22 16:08 Chief Complaint: First trimester missed EB Narrative: this is a 37-year-old 4 para 3 with a 10 week missed A/ B. She has had ultrasound x3 which is proven demise. Risks and benefits reviewed she was watched for 1 week. The did not passed tissue and now is ready for suction D&C PMFSH Past Medical History Medical History (Updated 06/20/22 @ 16:10 by Israel Ren MD) Migraine Surgical History Surgical History History of ovarian cystectomy laparoscopy Family History Family History Grandparent Acute myocardial infarction Lymphoma Hypertension Mother Thyroid cancer Sibling Crohn disease Father Hypertension Social History Social History Smoking status: Never smoker Alcohol intake: never Substance use: never Substance use type: does not use Additional occupation/education comments: cosomotologist Gender identity (if verbalized by the patient): Female Spiritual care concerns: No Meds Home Medications and Allergies Home Medications Medication Instructions Recorded Confirmed Type lwzhcafzgh-pvfncruhafvea-axcazetw 1 tablet PO PRN PRN Headache 01/09/22 06/20/22 History 50 mg-325 mg-40 mg tablet Allergies Allergy/AdvReac Type Severity Reaction Status Date / Time No Known Allergies Allergy Unknown Verified 06/20/22 12:20 Exam Const: General: cooperative, healthy appearing and comfortable Nutritional Appearance: average body habitus Orientation/consciousness: oriented to person, oriented to place and oriented to time HENMT: Head: normal to inspection Resp: Effort & Inspection: normal respiratory effort Cardio: Rate: regular rate Rhythm: regular rhythm Heart sounds: S1 normal heart sound present and S2 normal heart sound present GI: Inspection: normal to inspection : External Female Exam: normal external appearance Speculum Exam - Vagina: normal appearance of the vagina Speculum Exam - Cervix: normal appearance of the cervix Bimanual exam- vagina & uterus: enlarged Bimanual Exam- Adnexa, other: normal adnexae Assessment and Plan Assessment and plan (1) Missed : Code(s): O02.1 - Missed Status: Acute Plan suction dilatation and curettage
--- NOTE | 2022-06-21 06:10 | WPDHPUPDATE1 ---
History and Physical Update Update Date/Time: 06/21/22 06:10 History and Physical has been reviewed, including an updated exam of the patient. There are NO changes in the patient's condition. Risks, benefits, and alternatives have been discussed and questions answered. Patient agrees to proceed with procedure.
[2022-06-21] MEDS: ACETAMINOPHEN 500 MG TABLET 1000 MG PO (12:10)
[2022-06-21] MEDS: LACTATED RINGERS 1,000 ML 30 ML IV CONT (12:10)
[2022-06-21 12:13] LABS: Hematocrit 43.4 % (37.0-47.0); Hemoglobin 14.1 g/dL (12.0-15.0)
[2022-06-21 12:18] VITALS: BP 113/72; PULSE 73; RESP 16; TEMP 36.9; O2SAT 100
--- NOTE | 2022-06-21 12:36 | P.PNAN_ITS ---
Anes - Initial Pre Proc Eval Procedure: Operation Date: 06/21/22 13:30 Proposed Procedures p Suction Dilatation and Curettage - Israel Ren MD Date/Time: 06/21/22 12:36 Surgeon: Israel Ren MD Pre Op Diagnosis: missed AB Patient Data Age: 37 Gender: F Height: 1.64 m Weight: 58.5 kg Last Vital Signs Temp 98.4 F 06/21/22 12:18 Pulse 73 06/21/22 12:18 Resp 16 06/21/22 12:18 BP 113/72 06/21/22 12:18 Pulse Ox 100 06/21/22 12:18 O2 Del Method Room Air 06/21/22 12:18 Allergies Allergy/AdvReac Type Severity Reaction Status Date / Time No Known Allergies Allergy Unknown Verified 06/21/22 11:44 Home Medications Medication Instructions Recorded Confirmed Type fqxtdmtgln-yfxhhhctcppua-awjeaydf 1 tablet PO PRN PRN Headache 01/09/22 06/20/22 History 50 mg-325 mg-40 mg tablet hydrocodone 5 mg-acetaminophen 325 1 tablet PO Q4H PRN pain #14 tabs 06/21/22 Rx mg tablet Laboratory Tests 06/21/22 12:02 Hgb 14.1 g/dL D g/dL (12.0-15.0) Hct 43.4 % % (37.0-47.0) Patient hx anesthesia problems: post op nausea/vomiting Family hx anesthesia problems: none Results Review: All pre-operative results and documents have been reviewed as part of the pre- operative evaluation. [facility] Past Medical History Medical History (Updated 06/20/22 @ 16:10 by Israel Ren MD) Migraine Surgical History Surgical History History of ovarian cystectomy laparoscopy Family History Family History Grandparent Acute myocardial infarction Lymphoma Hypertension Mother Thyroid cancer Sibling Crohn disease Father Hypertension Social History Social History Smoking status: Never smoker Alcohol intake: never Substance use: never Substance use type: does not use Living arrangements: with family Additional occupation/education comments: cosomotologist Gender identity (if verbalized by the patient): Female Spiritual care concerns: No Anes - Eval Final PreProcedure Day of Procedure 06/21/22 12:36 Patient weight: normal Heart: regular rate and rhythm Lungs: clear to auscultation Airway: Mallampati scale class II Neurological: alert and oriented Last oral intake: >/= 8 hours ASA classification: II Emergent: no Anesthetic plan: proceed Anesthesia type and monitoring: general GIVS and standard monitoring Results Review: All pre-operative results and documents have been reviewed as part of the pre- operative evaluation. Informed Consent: The patient's anesthetic plan and its attendant risks and benefits were discussed with the patient/family/POA. Questions were solicited and answers provided to the satisfaction of the patient/family/POA.
[2022-06-21] MEDS: SCOPOLAMINE 1.5 MG PATCH TRANSDERM (12:49)
--- NOTE | 2022-06-21 13:28 | W.PM.PROC2 ---
Procedure Note - Detailed Date of Procedure 06/21/22 Pre-op Diagnosis missed AB Post-op Diagnosis Same Procedure Performed Suction dilatation curettage Surgeon Israel Ren MD Anesthesia MAC and Local Indications this is a 37-year-old 4 para 3 with a first-trimester missed AB Findings uterus sounded to 12 cm. Tissue consistent with products of conception Description of Procedure patient was prepped draped in the normal sterile fashion placed in the dorsal lithotomy position. Under excellent IV sedation weighted speculum placed in posterior fornix vagina. Anterior lip of the cervix grasped with single-tooth tenaculum. 2.5cc of 1% xylocaine anesthesia placed at 2, 4, 8, 10:00 a.m. of the cervix. Uterus sounded to 12cm. Serial dilatation with fragmented dilators performed followed by passes the 10. Suction curette removing a large amount of placental and tissue. When a good grating sound was heard and no further tissue removed, the instruments removed and all were accounted for she tolerated the procedure well went to recovery in satisfactory condition. All sponge, needle, instrument counts weWere correct. RhoGAM was ordered post operatively Estimated Blood Loss 100 Pathology Yes Complications No immediate complications Condition Stable
[2022-06-21 13:30] VITALS: BP 97/56; PULSE 64; RESP 16; O2SAT 96
[2022-06-21] MEDS: ONDANSETRON INJ 4 MG/2 ML VIAL IV PUSH (13:56)
[2022-06-21 14:00] VITALS: BP 129/69; PULSE 78; RESP 16; O2SAT 98
[2022-06-21 14:30] VITALS: BP 150/70; PULSE 70; RESP 16
[2022-06-21] MEDS: RHO(D) IMMUNE GLOBULIN 300 MCG/2 ML SYRINGE IM (14:51)
[2022-06-21 14:55] VITALS: BP 123/77; PULSE 68; RESP 14
== END 2022-06-21 15:02 | disposition home or self-care (01) ==
PROVIDERS: Visit Provider Obstetrics & Gynecology
PROC: (CPT 59820; principal; 2022-06-21 13:30)
DX: O02.1 Missed abortion (principal); Z3A.10 10 weeks gestation of pregnancy
CPT/HCPCS: 59820; 36415; 85014; 85018; 85461; 86850; 86900; 86901; 88305; 90384; A9270; J2250; J2405; J2704; J2790; J3010; J7120

== ENCOUNTER 2022-06-25 16:12 | Emergency (ER) | payer OTHER, SELFPAY ==
[2022-06-25 16:25] VITALS: BP 122/86; PULSE 72; RESP 18; O2SAT 100
--- NOTE | 2022-06-25 16:36 | ED.PREGNANCY ---
HPI - General Chief complaint: Vaginal Bleeding Stated complaint: vaginal bleeding D&C saturday Time Seen by Provider: 06/25/22 16:24 History of Present Illness HPI Narrative: This is a 37-year-old female G4, P3 01 who presents to the emergency department complaining of significant vaginal bleeding over the past hour. She underwent a D&C 4 days ago for a missed . She states she noted a large blood clot (described as a lemon sized) with subsequent passage of several small clots and continued bleeding. She states she soaked one pad and believes she has soaked through a second. She complains of some lightheadedness but denies chest pain or dyspnea. Related Data Home Medications Medication Instructions Recorded Confirmed sgdztmrbrc-kzpivsyuwsrda-waayomxd 1 tablet PO PRN PRN Headache 01/09/22 06/20/22 50 mg-325 mg-40 mg tablet Allergies Allergy/AdvReac Type Severity Reaction Status Date / Time No Known Allergies Allergy Unknown Verified 06/21/22 11:44 Review of Systems Review of Systems: CONSTITUTIONAL: Denies fever, chills, or sweats. EYES: Denies visual changes, redness, or discharge. ENT: Denies rhinorrhea, congestion, sore throat, or otalgia. CARDIOVASCULAR: Denies chest pain, palpitations, or edema. RESPIRATORY: Denies cough or dyspnea. GASTROINTESTINAL: Denies abdominal pain, nausea, vomiting, or diarrhea. GENITOURINARY: Vaginal bleeding and passage of clots denies dysuria or hematuria. SKIN: Denies rash or itching. MUSCULOSKELETAL: Denies back pain, joint pain, or myalgia. NEUROLOGIC: Denies headache, numbness, dizziness, or weakness. PSYCHIATRIC: Denies anxiety or depression. [facility] Past Medical History Medical History (Updated 06/25/22 @ 16:44 by Gee Camacho MD) Migraine Surgical History Surgical History (Updated 06/25/22 @ 16:43 by Gee Camacho MD) H/O dilation and curettage History of ovarian cystectomy laparoscopy Family History Family History Grandparent Acute myocardial infarction Lymphoma Hypertension Mother Thyroid cancer Sibling Crohn disease Father Hypertension Social History Social History Smoking status: Never smoker Alcohol intake: never Substance use: never Substance use type: does not use Living arrangements: with family 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 Gender identity (if verbalized by the patient): Female Spiritual care concerns: No Exam Narrative: GENERAL: Well-developed, well-nourished, and in no acute distress. HEAD: Normocephalic, atraumatic. EYES: PERRLA and EOMI. ENT: Nares clear, no rhinorrhea or epistaxis. Mucous membranes moist. Oropharynx without tonsillar hypertrophy exudate or other lesions. Bilateral TMs pearly fuentes nonbulging NECK: Supple. No adenopathy or masses. No carotid bruits or JVD CHEST: Clear to auscultation. No respiratory distress. No wheezes rales or rhonchi HEART: Regular rate and rhythm. No murmur heard. Normal peripheral pulses. ABDOMEN: Soft, nontender, nondistended, normal active bowel sounds. : (Chaperoned by female RN Cat) Clots are noted protruding from the cervix. Blood is seen in the vaginal vault. There are no noted injuries of the vaginal canal. There is no purulent drainage or cervical motion tenderness. EXTREMITIES: Normal range of motion. No edema. SKIN: Warm, dry, no rash. NEURO: No focal deficits. Alert and oriented x3. PSYCH: Normal mood and affect. Course Course Emergency Course: 17:19 - Hbg 11.8 down from 14.1 4 days ago. Paged OB for consultation. 17:41 - Discussed patient with foundry operator Dr. Quinonez who is comfortable with discharge and close follow up, ideally tomorrow. Discussed findings and recommendations with the patient. She notes bleeding has slowed and is comfortable with the plan. Discu
[2022-06-25 16:56] LABS: Alanine Aminotransferase 13 U/L (6-35); Albumin Level 4.5 g/dL (3.5-5.1); Alkaline Phosphatase 83 U/L (38-126); Anion Gap 6 mmol/L (8-16); Aspartate Amino Transferase 24 U/L (14-36); Bilirubin,Total 0.4 mg/dL (0.2-1.3); Blood Urea Nitrogen 9 mg/dL (7-17); Calcium 8.7 mg/dL (8.4-10.2); Carbon Dioxide 27 mmol/L (22-30); Chloride 101 mmol/L (98-107); Estimated CRCL calculation 82 ml/min; Estimated Glomerular Filt Rate > 60; Glucose 92 mg/dL (65-110); Potassium 4.2 mmol/L (3.4-5.0); Sodium 134 mmol/L (137-145)
[2022-06-25 16:58] LABS: Basophils Percent Auto 0.3 % (0.2-1.2); Eosinophils Absolute Auto 0.1 K/mm3 (0-0.3); Eosinophils Percent Auto 1.2 % (0-4.4); Hematocrit 36.1 % (37.0-47.0); Hemoglobin 11.8 g/dL (12.0-15.0); INR 0.9; Immature Granulocyte Absolute 0.03 K/mm3 (0.00-0.031); Immature Granulocyte Percent A 0.4 % (0-0.5); Lymphocytes Absolute Auto 1.74 K/mm3 (0.9-3.2); Lymphocytes Percent Auto 23.5 % (18.3-44.2); Mean Corpuscular HGB Conc 32.7 g/dl (32-36); Mean Corpuscular Volume 88.7 fl (80-100); Mean Platelet Volume 11.1 fl (7.4-10.4); Monocytes Absolute Auto 0.7 K/mm3 (0.1-0.6); Monocytes Percent Auto 8.8 % (2.6-8.5); Neutrophils Absolute Auto 4.9 K/mm3 (1.3-6.7); Neutrophils Percent Auto 65.8 % (45.5-73.1); Platelet Count Result 217 k/mm3 (150-375); Prothrombin Time 12.2 Seconds (11.1-14.7); Red Blood Count 4.07 M/mm3 (4.2-5.4); Red Cell Distribution Width 12.6 % (11.5-14.5); White Blood Count 7.4 K/mm3 (4.5-10.0)
[2022-06-25 16:59] LABS: Partial Thromboplastin Time 27.7 SECONDS (22.3-36.8)
== END 2022-06-25 17:50 | disposition home or self-care (01) ==
PROVIDERS: Emergency Provider Preventive Medicine Aerospace Medicine
DX: N93.9 Abnormal uterine and vaginal bleeding, unspecified (principal); Z98.890 Other specified postprocedural states
CPT/HCPCS: 36415; 80053; 85025; 85610; 85730; 99284

== ENCOUNTER 2022-09-23 19:45 | Emergency (ER) | payer OTHER, SELFPAY ==
[2022-09-23 19:59] VITALS: BP 118/77; PULSE 66; RESP 20; TEMP 36.7; O2SAT 99
--- NOTE | 2022-09-23 20:00 | ED.GENADULT ---
HPI - General Adult General Chief complaint: Unspecified Stated complaint: possible strep Time Seen by Provider: 09/23/22 19:50 History of Present Illness HPI narrative: The patient is a 37-year-old woman was otherwise healthy, who has occasional headaches, who presents with a scratchy throat since earlier today. Her daughter was seen here in the emergency room and was diagnosed with strep pharyngitis today. The patient is afebrile. No URI symptoms otherwise. No earache. no cough or nasal congestion rhinorrhea. No weakness. No abdominal pain or chest pain. No other complaints. Related Data Home Medications Medication Instructions Recorded Confirmed No Home Medications 09/23/22 09/23/22 Allergies Allergy/AdvReac Type Severity Reaction Status Date / Time No Known Allergies Allergy Unknown Verified 06/21/22 11:44 Review of Systems Review of Systems: All systems reviewed & are unremarkable except as noted in HPI and below Constitutional: Constitutional: Denies chills, Denies excessive sweating, Denies fatigue, Denies fever(s), Denies headache(s) and Denies weakness Eyes: Eyes: Denies change in vision and Denies photophobia ENT: Denies dysphagia, Denies dizziness, Denies headache(s), Denies lip swelling, Denies nasal congestion, Reports sore throat (mild scratchy throat. ) and Denies tongue swelling Cardiovascular: Cardiovascular: Denies chest pain, Denies syncope, Denies rapid heart rate and Denies dyspnea Respiratory: Respiratory: Denies cough, Denies dyspnea and Denies wheezing Gastrointestinal: Gastrointestinal: Denies abdominal pain, Denies constipation, Denies dysphagia, Denies diarrhea, Denies nausea and Denies vomiting Genitourinary: Genitourinary: Denies hematuria, Denies urinary frequency, Denies dysuria and Denies urinary urgency Musculoskeletal: Musculoskeletal: Denies back pain, Denies myalgias, Denies arthralgias, Denies joint swelling and Denies numbness Integumentary/Breasts: Skin/Breast: Denies pruritus, Denies erythema and Denies rash Neurologic: Denies confusion, Denies dizziness, Denies syncope, Denies headache(s), Denies focal weakness, Denies numbness and Denies weakness Psychiatric: Psychiatric: Denies anxiety and Denies confusion Endocrine: Endocrine: Denies excessive sweating and Denies fatigue Hematologic/Lymphatic: Hematologic/Lymphatic: Denies easy bleeding and Denies easy bruising Allergic/Immunologic: Allergic/Immunologic: Denies lip swelling, Denies tongue swelling and Denies wheezing PMFSH Past Medical History Medical History Migraine Surgical History Surgical History H/O dilation and curettage History of ovarian cystectomy laparoscopy Family History Family History Grandparent Acute myocardial infarction Lymphoma Hypertension Mother Thyroid cancer Sibling Crohn disease Father Hypertension Social History Social History Smoking status: Never smoker Alcohol intake: never Substance use: never Substance use type: does not use Living arrangements: with family 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 Gender identity (if verbalized by the patient): Female Spiritual care concerns: No Exam Const: General: healthy appearing, no acute distress, alert and well nourished; No confusion Nutritional Appearance: well nourished Orientation/consciousness: patient oriented x3 and No confusion Limitations: no limitations HENMT: Head: normal to inspection Ears: external ears normal Face/Nose/Sinus: normal facial exam Face and sinus: normal facial exam Mouth: Yes moist mucous membranes Throat: posterior oropharynx normal Eyes: Conjunctivae: conjunctivae normal Pupils: Equal, round and reac
[2022-09-23 20:44] LABS: Strep Group A RT-PCR NOT DETECTED (Negative)
[2022-09-23 21:21] VITALS: BP 121/81; PULSE 88; RESP 20; TEMP 36.7; O2SAT 99
== END 2022-09-23 21:23 | disposition home or self-care (01) ==
PROVIDERS: Emergency Provider Emergency Medicine
DX: J02.9 Acute pharyngitis, unspecified (principal)
CPT/HCPCS: 87651; 99282

== ENCOUNTER 2023-01-15 19:26 | Emergency (ER) | payer OTHER, SELFPAY ==
[2023-01-15 19:28] VITALS: BP 142/90; PULSE 90; RESP 20; TEMP 36.6; O2SAT 99
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
[2023-01-15] MEDS: SILVER SULFADIAZINE 1% CR 50 GM JAR (*BKC) 1 APPLIC TOPICAL (19:57)
[2023-01-15 20:04] VITALS: BP 138/90; PULSE 100; RESP 20; TEMP 36.6; O2SAT 98
== END 2023-01-15 20:06 | disposition home or self-care (01) ==
LOC: CHSED 19:55
PROVIDERS: Emergency Provider Emergency Medicine
DX: T20.20XA Burn of second degree of head, face, and neck, unspecified site, initial encounter (principal); X10.2XXA Contact with fats and cooking oils, initial encounter; T31.0 Burns involving less than 10% of body surface
CPT/HCPCS: 99283; A9270

== ENCOUNTER 2023-02-21 11:43 | Emergency (ER) | payer OTHER, SELFPAY ==
[2023-02-21 11:47] VITALS: BP 132/84; PULSE 62; RESP 17; TEMP 36.6; O2SAT 99
[2023-02-21] MEDS: METOCLOPRAMIDE HCL INJ 10 MG/2 ML VIAL IV PUSH (12:06)
[2023-02-21] MEDS: KETOROLAC 30 MG/ML VIAL (*BKC) IV PUSH (12:06)
[2023-02-21] MEDS: SODIUM CHLORIDE 0.9% IV 1,000 ML 999 ML IV CONT (12:10)
--- NOTE | 2023-02-21 12:39 | ED.HA ---
HPI - Headache General Chief Complaint: Headache Stated Complaint: migraine Time Seen by Provider: 02/21/23 11:48 Source: patient and family Mode of arrival: ambulatory Limitations: no limitations History of Present Illness HPI Narrative: this is 38-year-old female that presents with migraine headache throbbing right-sided light sensitive and sound sensitive with some nausea with no vomiting, no fever chills no neck pain or stiffness no chest pain no shortness of breath no blurry vision. Patient has typical migraines worsened during menstrual periods has taken her medication with relief. MD elicited complaint: migraine Pertinent past history: migraines Onset (ago): day(s) Location: right and frontal Severity: moderate Pain scale (0-10): 7 Quality & Timing: throbbing Related Data Home Medications Medication Instructions Recorded Confirmed jcoeabmvqw-yzhzqklopyghc-atxnutct 1 - 2 tablet PO Q4-6H 02/21/23 02/21/23 50 mg-325 mg-40 mg tablet Allergies Allergy/AdvReac Type Severity Reaction Status Date / Time No Known Allergies Allergy Unknown Verified 02/21/23 11:46 Review of Systems Review of Systems: All systems reviewed & are unremarkable except as noted in HPI and below PMFSH Past Medical History Medical History Migraine Surgical History Surgical History H/O dilation and curettage History of ovarian cystectomy laparoscopy Family History Family History Grandparent Acute myocardial infarction Lymphoma Hypertension Mother Thyroid cancer Sibling Crohn disease Father Hypertension Social History Social History Smoking status: Never smoker Alcohol intake: never Substance use: never Substance use type: does not use Living arrangements: with family 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 Gender identity (if verbalized by the patient): Female Spiritual care concerns: No Exam Const: General: healthy appearing Nutritional Appearance: well nourished Orientation/consciousness: patient oriented x3 Limitations: no limitations HENMT: Head: normal to inspection Face and sinus: normal facial exam Eyes: Conjunctivae: conjunctivae normal Pupils: Equal, round and reactive pupils present EOM: EOMs intact bilaterally Direct Ophthalmoscopy: photophobia Neck: Neck: normal visual inspection, no lymphadenopathy and no meningeal signs Chest: Chest palpation & inspection: normal inspection of the chest Resp: Effort & Inspection: normal respiratory effort Auscultation: clear to auscultation bilaterally Cardio: Rate: regular rate Rhythm: regular rhythm GI: GI Palp: Yes Soft to palpation Neuro: General: patient oriented x3 and moves all extremities Cranial nerves: Yes Nystagmus not present Speech: normal speech Gait exam (Neuro): Normal gait present Extrem: General: normal to inspection Psych: Mental Status: mental status grossly normal Course Course Emergency Course: Patient received IV fluids dose of IV Reglan and IV Toradol reassessment of patient, patient's headache has improved. Vital Signs Vital signs: Vital Signs Temperature 36.6 C 02/21/23 11:47 Pulse Rate 62 02/21/23 11:47 Respiratory Rate 17 02/21/23 11:47 Blood Pressure 132/84 02/21/23 11:47 Pulse Oximetry 99 02/21/23 11:47 Oxygen Delivery Room Air 02/21/23 11:47 Temperature 36.6 C 02/21/23 11:47 Pulse Rate 62 02/21/23 11:47 Respiratory Rate 17 02/21/23 11:47 Blood Pressure 132/84 02/21/23 11:47 Pulse Oximetry 99 02/21/23 11:47 Oxygen Delivery Room Air 02/21/23 11:47 Critical Care Time Critical Care Time Critical Care Time: No Discharge Plan Discharge Clinical Impression: aKyli
[2023-02-21 13:00] VITALS: BP 105/75; PULSE 60; RESP 18; O2SAT 100
== END 2023-02-21 13:00 | disposition home or self-care (01) ==
PROVIDERS: Emergency Provider Emergency Medicine
DX: G43.909 Migraine, unspecified, not intractable, without status migrainosus (principal)
CPT/HCPCS: 96361; 96374; 96375; 99284; J1885; J2765; J7030

== ENCOUNTER 2024-07-02 10:49 | Outpatient (CLI) | payer OTHER, SELFPAY ==
[2024-07-02 11:18] LABS: Basophils Absolute Auto 0.04 K/mm3 (0.00-0.10); Basophils Percent Auto 0.7 % (0.0-1.0); Eosinophils Absolute Auto 0.07 K/mm3 (0.02-0.50); Eosinophils Percent Auto 1.2 % (1.0-6.0); Hematocrit 42.6 % (35.0-49.0); Hemoglobin 13.5 g/dL (12.0-15.0); Immature Granulocyte Absolute 0.02 K/mm3 (0.00-0.00); Immature Granulocyte Percent A 0.3 % (0.0-0.0); Lymphocytes Absolute Auto 1.96 K/mm3 (1.10-4.50); Lymphocytes Percent Auto 33.6 % (18.0-42.0); Mean Corpuscular HGB Conc 31.7 g/dL (32-36); Mean Corpuscular Volume 88.4 fL (78.0-102.0); Mean Platelet Volume 10.9 fl (9.2-11.8); Monocytes Percent Auto 6.9 % (2.0-11.0); Neutrophils Absolute Auto 3.34 K/mm3 (1.70-7.20); Neutrophils Percent Auto 57.3 % (50.0-70.0); Platelet Count Result 271 K/mm3 (150-420); Red Blood Count 4.82 M/mm3 (4.20-5.40); Red Cell Distribution Width 13.7 % (11.6-14.4); White Blood Count 5.8 K/mm3 (4.8-10.8)
[2024-07-02 11:19] LABS: Add Urine Microscopic? NO; Appearance Urine Clear (Clear); Bilirubin Urine Negative (Negative); Blood Urine Negative (Negative); Color Urine Light Yellow (Yellow); Glucose Urine UA Negative (Negative); Ketones Urine Negative (Negative); Leukocyte Esterase Ur Negative (Negative); Nitrate Urine Negative (Negative); Protein Urine Negative (Negative); Urobilinogen Urine 0.2 mg/dL (0.2-1.0)
[2024-07-02 14:26] LABS: Alanine Aminotransferase 20 U/L (14-59); Albumin Level 4.6 g/dL (3.4-5.0); Alkaline Phosphatase 65 U/L (46-116); Amylase 55 U/L (25-115); Anion Gap 10 mmol/L (4-12); Aspartate Amino Transferase 19 U/L (15-37); Bilirubin,Total 0.7 mg/dL (0.00-1.00); Blood Urea Nitrogen 12 mg/dL (7-18); Calcium 9.4 mg/dL (8.5-10.1); Carbon Dioxide 26 mmol/L (21-32); Chloride 102 mmol/L (98-108); Estimated Glomerular Filt Rate > 60; Glucose 89 mg/dL (70-99); Lipase 83 U/L (16-77); Osmolality Calculated 284 mOsm/kg (285-295); Potassium 4.7 mmol/L (3.5-5.1); Sodium 138 mmol/L (136-145); Total Protein 7.7 g/dL (6.4-8.2)
== END 2024-07-02 10:50 | disposition home or self-care (01) ==
LOC: CHSLAB 10:51
PROVIDERS: PCP Family Medicine; Visit Provider Family Medicine
DX: R10.9 Unspecified abdominal pain (principal)
CPT/HCPCS: 36415; 80053; 81003; 82150; 83690; 85025

== ENCOUNTER 2024-07-03 08:13 | Outpatient (CLI) | payer OTHER, SELFPAY ==
--- NOTE | ~2024-07-03 | US_ITS ---
US abdomen complete EXAMINATION: US Abdomen Complete INDICATION: Elevated liver enzymes PROCEDURE: Realtime High Resolution abdomen ultrasound. COMPARISON: No prior studies for comparison FINDINGS: Gallbladder within normal limits. No gallstones, pericholecystic fluid, gallbladder wall t hickening or biliary dilatation. Common bile duct measures 3 mm. Liver echotexture within normal limits without focal mass. Pancreas within normal limits. Pancreati c tail is obscured by bowel gas. Spleen is unremarkeable. Renal echotexture is within normal limits bilaterally without hydronephrosis, contour deforming mass or renal stone. Right kidney measures 10.6 cm. Left kidney measures 10 cm. Visualized aspects of the aorta and IVC are within normal limits. Portal vein is patent. No sonograph ic Gonzalez's sign indicated by the technologist. IMPRESSION: 1: Normal abdominal ultrasound. Reviewed, dictated and finalized at location A. [employer] MANAGER
== END 2024-07-03 08:14 | disposition home or self-care (01) ==
PROVIDERS: PCP Family Medicine; Visit Provider Family Medicine
DX: K82.8 Other specified diseases of gallbladder (principal)
CPT/HCPCS: 76700

== ENCOUNTER 2024-07-05 03:12 | Emergency (ER) | payer OTHER, SELFPAY ==
[2024-07-05 03:13] VITALS: BP 145/82; PULSE 114; RESP 18; TEMP 37.2; O2SAT 98
--- NOTE | 2024-07-05 03:17 | PC.NURSE ---
COVID PCR obtained and taken to lab
--- NOTE | 2024-07-05 03:17 | PC.NURSE ---
pt ambulated to bathroom for urine specimen
--- NOTE | 2024-07-05 03:36 | ED_ITS ---
HPI - URI/Sore Throat General Chief Complaint: Upper Respiratory Infection Stated Complaint: abdominal pain Time Seen by Provider: 07/05/24 03:14 Source: patient Mode of arrival: ambulatory Limitations: no limitations History of Present Illness HPI Narrative: 39-year-old female presents to the ED with 1 day history of -- cough which is nonproductive -- body ache -- 2 week history of right lower quadrant abdominal pain. she had blood work 07/02/2024 which revealed a normal white cell count. Patient complains of ongoing pain. No fever or chills. No nausea /vomiting/ diarrhea. LMP on 06/17/2023. Onset (ago): day(s) ( One day) Consistency: constant Exacerbating factors: nothing Relieving factors: nothing Associated symptoms: denies other symptoms, myalgias, cough and abdominal pain Treatments prior to arrival: none Related Data Home Medications ?Medication ?Instructions ?Recorded ?Confirmed ?Last Taken ?Type yfwfzyncur-iluskyuvccbyb-infebcqu 1 - 2 tablet PO Q4-6H 02/21/23 02/21/23 Unknown History 50 mg-325 mg-40 mg tablet Allergies Allergy/AdvReac Type Severity Reaction Status Date / Time No Known Allergies Allergy Unknown Verified 07/05/24 03:14 Review of Systems 2 Review of Systems: All systems reviewed & are unremarkable except as noted in HPI and below Constitutional: Constitutional: Reports as per HPI and Reports no additional constitutional complaints Eyes: Eyes: Reports as per HPI and Reports no additional eye complaints ENT: Reports system reviewed and no additional complaints, except as documented and Reports as per HPI Cardiovascular: Cardiovascular: Reports as per HPI and Reports no additional cardiovascular complaints Respiratory: Respiratory: Reports as per HPI and Reports no additional respiratory complaints Gastrointestinal: Gastrointestinal: Reports as per HPI, Reports no additional gastrointestinal complaints and Reports abdominal pain Genitourinary: Genitourinary: Reports no additional female genitourinary complaints and Reports as per HPI Musculoskeletal: Musculoskeletal: Reports no additional musculoskeletal complaints and Reports as per HPI Integumentary/Breasts: Skin/Breast: Reports system reviewed and no additional complaints, except as docu and Reports as per HPI Neurologic: Reports system reviewed and no additional complaints, except as documented and Reports as per HPI Psychiatric: Psychiatric: Reports no additional psychiatric complaints and Reports as per HPI Endocrine: Endocrine: Reports no additional endocrine complaints and Reports as per HPI Hematologic/Lymphatic: Hematologic/Lymphatic: Reports no additional hematologic/lymphatic complaints and Reports as per HPI Allergic/Immunologic: Allergic/Immunologic: Reports no additional allergic/immunologic complaints and Reports as per HPI [facility] Past Medical History Medical History Migraine Surgical History Surgical History H/O dilation and curettage History of ovarian cystectomy laparoscopy Family History Family History Grandparent Acute myocardial infarction Lymphoma Hypertension Mother Thyroid cancer Sibling Crohn disease Father Hypertension Social History Social History Smoking status: Never smoker Alcohol intake: never Substance use: never Substance use type: does not use Living arrangements: with family 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 Afebrile. Oxygen saturation of 98% on room air. Const: General: healthy appearing and no acute distress O rientation/consciousness: patient oriented x3 Limitations: no limitations HENMT: Head: normal to inspection Ears: external ears normal F weston/Nose/Sinus: Normal external nose present Face and sinus: normal facial exam Mouth: Yes Normal oral and palatal mucosa present Throat: posterior oropharynx normal Eyes: Conjunctivae: conjunctivae normal Pupils: Equal, round and reactive pupils present EOM: EOMs intact bilaterally Direct Ophthalmoscopy: no photophobia Neck: Neck: normal visual inspection, no lymphadenopathy and no meningeal signs Chest: Chest palpation & inspection: normal inspection of the chest Resp: Effort & Inspection: normal respiratory effort Auscultation: clear to auscultation bilaterally Cardio: Rate: regular rate Rhythm: regular rhythm GI: GI Palp: Yes Soft to palpation Auscultation: normal bowel sounds O ther: Right lower quadrant tenderness. No rigidity /rebound. : General: Yes no CVA tenderness Back/Spine/Pelvis: Back: no CVA tenderness Skin: General skin exam: normal color Rashes: no rashes Wounds: no wounds Neuro: General: patient oriented x3, moves all extremities, no meningeal signs, no focal motor deficits and CN's II-XI intact bilaterally Cranial nerves: Yes Nystagmus not present Speech: normal speech Extrem: General: normal to inspection and no clubbing, cyanosis or edema Psych: Mental Status: mental status grossly normal Affect: normal affect Attitude: cooperative Course Course Emergency Course: Nonproductive and body aches suggestive of upper respiratory infection. tested positive for influenza A right lower quadrant abdominal pain-- patient has had normal UA and white cell count. Vital Signs Vital signs: Vital Signs Oxygen Delivery Room Air 07/05/24 03:12 Temperature 37.2 C 07/05/24 03:13 Pulse Rate 114 H 07/05/24 03:13 Respiratory Rate 18 07/05/24 03:13 Blood Pressure 145/82 H 07/05/24 03:13 Pulse Oximetry 98 07/05/24 03:13 Oxygen Delivery Room Air 07/05/24 03:13 MDM - URI/Sore Throat MDM Narrative Medical decision making narrative: Influenza a abdominal pain Differential Diagnosis Differential diagnosis: Likely viral infection and bronchitis Medical Records Attestation: I reviewed the patient's medical records. Lab Data Attestation: I reviewed the patient's lab results. 07/05/24 04:09 07/05/24 04:09 Labs: Lab Results 07/05/24 07/05/24 07/05/24 Range/Units 03:14 03:20 04:09 WBC 7.3 (4.8-10.8) K/mm3 RBC 4.51 (4.20-5.40) M/mm3 Hgb 12.6 (12.0-15.0) g/dL Hct 39.3 (35.0-49.0) % MCV 87.1 (78.0-102.0) fL MCH 27.9 (27.0-31.0) pg MCHC 32.1 (32-36) g/dL RDW 13.7 (11.6-14.4) % Plt Count 244 (150-420) K/mm3 MPV 10.9 (9.2-11.8) fl Immature Gran % (Auto) 0.5 H (0.0-0.0) % Neut % (Auto) 87.5 H (50.0-70.0) % Lymph % (Auto) 4.7 L (18.0-42.0) % Mcdonald % (Auto) 6.5 (2.0-11.0) % Eos % (Auto) 0.5 L (1.0-6.0) % Baso % (Auto) 0.3 (0.0-1.0) % Lymph # (Auto) 0.34 L (1.10-4.50) K/mm3 Mcdonald # (Auto) 0.47 (0.10-0.90) K/mm3 Eos # (Auto) 0.04 (0.02-0.50) K/mm3 Baso # (Auto) 0.02 (0.00-0.10) K/mm3 Abs Immat Gran (auto) 0.04 H (0.00-0.00) K/mm3 Absolute Neuts (auto) 6.37 (1.70-7.20) K/mm3 Absolute Nucleated RBC 0.00 (0.00-0.00) K/mm3 Nucleated RBC % 0.0 (0-0.0) % Sodium 138 (136-145) mmol/L Potassium 4.2 (3.5-5.1) mmol/L Chloride 102 (98-108) mmol/L Carbon Dioxide 24 (21-32) mmol/L Anion Gap 12 (4-12) mmol/L BUN 14 (7-18) mg/dL Creatinine 1.08 H (0.55-1.02) mg/dL Estim Creat Clear Calc 56 ml/min Estimated GFR 56 L (59 - ) Glucose 103 H (70-99) mg/dL Calculated Osmolality 286 (285-295) mOsm/kg Lactic Acid 1.2 (0.4-2.0) mmol/L Calcium 8.9 (8.5-10.1) mg/dL Total Bilirubin 0.5 (0.00-1.00) mg/dL AST 11 L (15-37) U/L ALT 19 (14-59) U/L Alkaline Phosphatase 64 (46-116) U/L Total Protein 7.4 (6.4-8.2) g/dL Albumin 4.2 (3.4-5.0) g/dL Lipase 83 H (16-77) U/L Urine Color Light yellow (Yellow) Urine Appearance Clear (Clear) Urine pH 7.5 (5.0-8.0) Ur Specific [place] 1.015 (1.010-1.020) Urine Protein Negative (Negative) Urine Glucose (UA) Negative (Negative) Urine Ketones Negative (Negative) Ur Blood (Man) Negative (Negative) Urine Nitrate Negative (Negative) Urine Bilirubin Negative (Negative) Urine Urobilinogen 0.2 (0.2-1.0) mg/dL Leukocyte Esterase Rfl Negative (Negative) JACK/UL Urine Test Negative Influenza A (RT-PCR) Cancelled Positive A Influenza B (RT-PCR) Cancelled Negative RSV (RT-PCR) Cancelled Negative SARS-CoV-2 RNA (RT-PCR) Cancelled Negative Discharge Plan Discharge Clinical Impression: Influenza Abdominal pain Qualifiers: Abdominal location: right lower quadrant Qualified Code(s): R10.31 - Right lower quadrant pain Patient Disposition: Home, Self-Care Condition: Stable Instructions: Antibiotic Form, Influenza (DC), Abdominal Pain (ED) Patient Language: [place] Islander Prescriptions: No Action kinpfdwosr-hfkopznbasveg-japi 50-325-40 mg tablet 1 - 2 tablet PO Q4-6H tramadol 50 mg tablet 50 mg PO Q6H PRN (Reason: pain) Qty: 30 0RF ondansetron 4 mg tablet,disintegrating 4 mg PO Q6H PRN (Reason: nausea and vomiting) Qty: 14 0RF Follow-up/Referrals: Cem Carrillo MD [Primary Care Provider] - Time of Disposition: 04:39
[2024-07-05 03:37] LABS: Add Urine Microscopic? NO; Appearance Urine Clear (Clear); Bilirubin Urine Negative (Negative); Blood Urine Negative (Negative); Color Urine Light Yellow (Yellow); Glucose Urine UA Negative (Negative); Ketones Urine Negative (Negative); Leukocyte Esterase Ur Negative LEU/UL (Negative); Nitrate Urine Negative (Negative); Protein Urine Negative (Negative); Specific Grav Ur 1.015 (1.010-1.020); Urobilinogen Urine 0.2 mg/dL (0.2-1.0); pH Urine 7.5 (5.0-8.0)
[2024-07-05 03:39] LABS: Pregnancy On Board Control Positive; Urine Pregnancy Test Negative
[2024-07-05 04:10] LABS: Influenza A QL RT-PCR Positive (Negative); Influenza B QL RT-PCR Negative (Negative); RSV RNA, RT-PCR Negative (Negative); SARS-CoV-2 RNA PCR Negative (Negative)
[2024-07-05 04:13] LABS: Basophils Absolute Auto 0.02 K/mm3 (0.00-0.10); Basophils Percent Auto 0.3 % (0.0-1.0); Eosinophils Absolute Auto 0.04 K/mm3 (0.02-0.50); Eosinophils Percent Auto 0.5 % (1.0-6.0); Hematocrit 39.3 % (35.0-49.0); Hemoglobin 12.6 g/dL (12.0-15.0); Immature Granulocyte Absolute 0.04 K/mm3 (0.00-0.00); Immature Granulocyte Percent A 0.5 % (0.0-0.0); Lymphocytes Absolute Auto 0.34 K/mm3 (1.10-4.50); Lymphocytes Percent Auto 4.7 % (18.0-42.0); Mean Corpuscular HGB Conc 32.1 g/dL (32-36); Mean Corpuscular Hemoglobin 27.9 pg (27.0-31.0); Mean Corpuscular Volume 87.1 fL (78.0-102.0); Mean Platelet Volume 10.9 fl (9.2-11.8); Monocytes Absolute Auto 0.47 K/mm3 (0.10-0.90); Monocytes Percent Auto 6.5 % (2.0-11.0); Neutrophils Absolute Auto 6.37 K/mm3 (1.70-7.20); Neutrophils Percent Auto 87.5 % (50.0-70.0); Platelet Count Result 244 K/mm3 (150-420); Red Blood Count 4.51 M/mm3 (4.20-5.40); Red Cell Distribution Width 13.7 % (11.6-14.4); White Blood Count 7.3 K/mm3 (4.8-10.8)
[2024-07-05 04:26] LABS: Alanine Aminotransferase 19 U/L (14-59); Albumin Level 4.2 g/dL (3.4-5.0); Alkaline Phosphatase 64 U/L (46-116); Anion Gap 12 mmol/L (4-12); Aspartate Amino Transferase 11 U/L (15-37); Bilirubin,Total 0.5 mg/dL (0.00-1.00); Blood Urea Nitrogen 14 mg/dL (7-18); Calcium 8.9 mg/dL (8.5-10.1); Carbon Dioxide 24 mmol/L (21-32); Chloride 102 mmol/L (98-108); Estimated CRCL calculation 56 ml/min; Estimated Glomerular Filt Rate 56; Glucose 103 mg/dL (70-99); Lipase 83 U/L (16-77); Osmolality Calculated 286 mOsm/kg (285-295); Potassium 4.2 mmol/L (3.5-5.1); Sodium 138 mmol/L (136-145); Total Protein 7.4 g/dL (6.4-8.2)
[2024-07-05 04:32] LABS: Lactic Acid Reflex 1.2 mmol/L (0.4-2.0)
== END 2024-07-05 04:47 | disposition home or self-care (01) ==
PROVIDERS: Emergency Provider Internal Medicine Critical Care Medicine; PCP Family Medicine
DX: J11.1 Influenza due to unidentified influenza virus with other respiratory manifestations (principal); R10.31 Right lower quadrant pain; Z20.822 Contact with and (suspected) exposure to COVID-19
CPT/HCPCS: 36415; 80053; 81025; 83605; 83690; 85025; 87637; 99283

== ENCOUNTER 2025-02-01 21:50 | Emergency (ER) | payer OTHER, SELFPAY ==
--- NOTE | 2025-02-01 21:53 | ED_ITS ---
HPI - Abdominal Pain General Chief Complaint: Abdominal Pain Stated Complaint: abd pain Time Seen by Provider: 02/01/25 21:53 Source: patient Mode of arrival: ambulatory Limitations: no limitations History of Present Illness HPI narrative: Patient is a 40-year-old female with abdominal pain of the right upper quadrant that radiates to the back for the past day. She has acid reflux problems as well at times. MD elicited complaint: abdominal pain Pertinent past history: other ( GERD) Onset (ago): day(s) ( 1) Pain Consistency: intermittent Location: epigastric and RUQ Severity: moderate Pain scale (0-10): 5 Quality: sharp Radiation: back Migration to: no migration Exacerbating factors: eating Relieving factors: nothing Context: confirms history of similar episodes Associated symptoms: nausea and diarrhea Treatments prior to arrival: other ( none) Related Data Home Medications ?Medication ?Instructions ?Recorded ?Confirmed ?Last Taken ?Type flyjdwoykx-rnnnbxaeuulro-ryrfwsvl 1 - 2 tablet PO Q4-6 H 02/21/23 02/21/23 Unknown History 50 mg-325 mg-40 mg tablet Allergies Allergy/AdvReac Type Severity Reaction Status Date / Time No Known Allergies Allergy Unknown Verified 07/05/24 03:14 Review of Systems 2 Review of Systems: All systems reviewed & are unremarkable except as noted in HPI and below Constitutional: Constitutional: Reports no additional constitutional complaints Eyes: Eyes: Reports no additional eye complaints ENT: Reports system reviewed and no additional complaints, except as documented Cardiovascular: Cardiovascular: Reports no additional cardiovascular complaints Respiratory: Respiratory: Reports no additional respiratory complaints Gastrointestinal: Gastrointestinal: Reports no additional gastrointestinal complaints Genitourinary: Genitourinary: Reports no additional female genitourinary complaints Musculoskeletal: Musculoskeletal: Reports no additional musculoskeletal complaints Integumentary/Breasts: Skin/Breast: Reports system reviewed and no additional complaints, except as docu Neurologic: Reports system reviewed and no additional complaints, except as documented Psychiatric: Psychiatric: Reports no additional psychiatric complaints Endocrine: Endocrine: Reports no additional endocrine complaints Hematologic/Lymphatic: Hematologic/Lymphatic: Reports no additional hematologic/lymphatic complaints Allergic/Immunologic: Allergic/Immunologic: Reports no additional allergic/immunologic complaints PMFSH Past Medical History Medical History Migraine Surgical History Surgical History H/O dilation and curettage History of ovarian cystectomy laparoscopy Family History Family History Grandparent Acute myocardial infarction Lymphoma Hypertension Mother Thyroid cancer Sibling Crohn disease Father Hypertension Social History Social History Smoking status: Never smoker Alcohol intake: never Substance use: never Substance use type: does not use Living arrangements: with family 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 Gender identity (if verbalized by the patient): Female Spiritual care concerns: No Exam 2 Const: General: healthy appearing Nutritional Appearance: well nourished Orientation/consciousness: patient oriented x3 HENMT: Head: normal to inspection Ears: external ears normal F weston/Nose/Sinus: Normal external nose present Eyes: Conjunctivae: conjunctivae normal Pupils: Equal, round and reactive pupils present EOM: EOMs intact bilaterally Neck: Neck: normal visual inspection Chest: Chest palpation & inspection: normal inspection of the chest Resp: Effort & Inspection: normal respiratory effort and not labored A uscultation: clear to auscultation bilaterally and no crackles Cardio: Rate: regular rate Rhythm: regular rhythm Heart sounds: no murmurs GI: Inspection: non-distended GI Palp: Yes Soft to palpation, Yes Tenderness to palpation present (GI) ( right upper quadrant and epigastrium), No Guarding due to palpation present (GI), No Rigid due to palpation, No Hernia present, No Palpable mass present and No Rebound tenderness present A uscultation: normal bowel sounds : General: Yes bladder normal to palpation Back/Spine/Pelvis: Back: no CVA tenderness Skin: General skin exam: normal color Rashes: no rashes Wounds: no wounds Neuro: General: patient oriented x3, moves all extremities and no meningeal signs Extrem: General: normal to inspection Psych: Mental Status: mental status grossly normal Affect: normal affect Attitude: cooperative Course Vital Signs Vital signs: Vital Signs Temperature 36.7 C 02/01/25 22:00 Pulse Rate 69 02/01/25 22:00 Respiratory Rate 18 02/01/25 22:00 Blood Pressure 129/83 02/01/25 22:00 Pulse Oximetry 100 02/01/25 22:00 Oxygen Delivery Room Air 02/01/25 22:00 Temperature 36.7 C 02/01/25 22:00 Pulse Rate 74 02/01/25 23:05 Respiratory Rate 18 02/01/25 23:05 Blood Pressure 124/76 02/01/25 23:05 Pulse Oximetry 99 02/01/25 23:05 Oxygen Delivery Room Air 02/01/25 23:05 MDM - Abdominal Pain MDM Narrative Medical decision making narrative: patient is a 40-year-old female with GI complaints. We will do a GI workup but CT scan is not needed at this time. GI cocktail. Lab Data Attestation: I reviewed the patient's lab results. 02/01/25 22:13 02/01/25 22:13 Labs: Lab Results 02/01/25 02/01/25 02/01/25 Range/Units 22:13 22:22 22:26 WBC 9.3 (4.8-10.8) K/mm3 RBC 4.27 (4.20-5.40) M/mm3 Hgb 12.1 (12.0-15.0) g/dL Hct 38.0 (35.0-49.0) % MCV 89.0 (78.0-102.0) fL MCH 28.3 (27.0-31.0) pg MCHC 31.8 L (32-36) g/dL RDW 13.4 (11.6-14.4) % Plt Count 250 (150-420) K/mm3 MPV 11.0 (9.2-11.8) fl Immature Gran % (Auto) 0.2 H (0.0-0.0) % Neut % (Auto) 61.8 (50.0-70.0) % Lymph % (Auto) 29.7 (18.0-42.0) % Robeson % (Auto) 6.4 (2.0-11.0) % Eos % (Auto) 1.5 (1.0-6.0) % Baso % (Auto) 0.4 (0.0-1.0) % Lymph # (Auto) 2.76 (1.10-4.50) K/mm3 Robeson # (Auto) 0.59 (0.10-0.90) K/mm3 Eos # (Auto) 0.14 (0.02-0.50) K/mm3 Baso # (Auto) 0.04 (0.00-0.10) K/mm3 Abs Immat Gran (auto) 0.02 H (0.00-0.00) K/mm3 Absolute Neuts (auto) 5.73 (1.70-7.20) K/mm3 Absolute Nucleated RBC 0.00 (0.00-0.00) K/mm3 Nucleated RBC % 0.0 (0-0.0) % Sodium 141 (137-145) mmol/L Potassium 4.3 (3.4-5.0) mmol/L Chloride 104 (98-107) mmol/L Carbon Dioxide 28 (22-30) mmol/L Anion Gap 9 (4-12) mmol/L BUN 13 (7-17) mg/dL Creatinine 1.03 H (0.7-1.0) mg/dL Estim Creat Clear Calc 58 ml/min Estimated GFR 59 (59 - ) Glucose 116 H (65-110) mg/dL Calculated Osmolality 293 (285-295) mOsm/kg Calcium 9.3 (8.4-10.2) mg/dL Total Bilirubin 0.6 (0.2-1.3) mg/dL AST 26 (14-36) U/L ALT 16 (6-35) U/L Alkaline Phosphatase 49 (38-126) U/L Total Protein 7.0 (6.3-8.2) g/dL Albumin 4.5 (3.5-5.1) g/dL Lipase 258 (23-300) U/L Urine Color Light yellow (Yellow) Urine Appearance Clear (Clear) Urine pH 7.0 (5.0-8.0) Ur Specific Marion <= 1.005 L (1.010-1.020) Urine Protein Negative (Negative) Urine Glucose (UA) Negative (Negative) Urine Ketones Negative (Negative) Ur Blood (Man) 3+ H (Negative) Urine Nitrate Negative (Negative) Urine Bilirubin Negative (Negative) Urine Urobilinogen 0.2 (0.2-1.0) mg/dL Leukocyte Esterase Rfl 1+ H (Negative) JACK/UL Urine RBC 21-50 H (0-2) /hpf Urine WBC 7-9 H (0-3) /hpf Ur Squamous Epith Cells Rare (Few) /hpf Urine Bacteria Trace (None) /hpf Urine Test Negative Discharge Plan Discharge Clinical Impression: Chest pain due to GERD UTI (urinary tract infection) Qualifiers: Urinary tract infection type: acute cystitis Hematuria presence: with hematuria Qualified Code(s): N30.01 - Acute cystitis with hematuria Patient Disposition: Home Condition: Stable Instructions: Antibiotic Form, Urinary Tract Infection in Women (DC) Patient Language: Swedish Prescriptions: New cephalexin 500 mg capsule 500 mg PO BID 7 Days Qty: 14 0RF No Action ymamqckthp-aghkpanhowjjd-wlry 50-325-40 mg tablet 1 - 2 tablet PO Q4-6H tramadol 50 mg tablet 50 mg PO Q6H PRN (Reason: pain) Qty: 30 0RF ondansetron 4 mg tablet,disintegrating 4 mg PO Q6H PRN (Reason: nausea and vomiting) Qty: 14 0RF Follow-up/Referrals: Cem Carrillo MD [Primary Care Provider, Internal Medicine] Time of Disposition: 22:49
[2025-02-01 22:00] VITALS: BP 129/83; PULSE 69; RESP 18; TEMP 36.7; O2SAT 100
[2025-02-01] MEDS: MAG HYDROX/ALUMINUM HYD/SIMETH 30 ML, PHENobarb/HYOSCY/ATROPINE/SCOP 32.4 MG, LIDOCAINE... PO (22:13)
[2025-02-01 22:18] LABS: Hematocrit 38.0 % (35.0-49.0); Hemoglobin 12.1 g/dL (12.0-15.0); Immature Granulocyte Percent A 0.2 % (0.0-0.0); Lymphocytes Absolute Auto 2.76 K/mm3 (1.10-4.50); Mean Corpuscular HGB Conc 31.8 g/dL (32-36); Mean Corpuscular Hemoglobin 28.3 pg (27.0-31.0); Mean Corpuscular Volume 89.0 fL (78.0-102.0); Nucleated Red Blood Cells Absolute Auto 0.00 K/mm3 (0.00-0.00); Nucleated Red Blood Cells Perc 0.0 % (0-0.0); Platelet Count Result 250 K/mm3 (150-420); Red Blood Count 4.27 M/mm3 (4.20-5.40); White Blood Count 9.3 K/mm3 (4.8-10.8)
[2025-02-01 22:28] LABS: Add Urine Microscopic? YES; Appearance Urine Clear (Clear); Glucose Urine UA Negative (Negative); Leukocyte Esterase Ur 1+ LEU/UL (Negative); Nitrate Urine Negative (Negative); Specific Grav Ur <= 1.005 (1.010-1.020)
[2025-02-01 22:32] LABS: Alanine Aminotransferase 16 U/L (6-35); Albumin Level 4.5 g/dL (3.5-5.1); Alkaline Phosphatase 49 U/L (38-126); Anion Gap 9 mmol/L (4-12); Aspartate Amino Transferase 26 U/L (14-36); Bilirubin,Total 0.6 mg/dL (0.2-1.3); Blood Urea Nitrogen 13 mg/dL (7-17); Calcium 9.3 mg/dL (8.4-10.2); Carbon Dioxide 28 mmol/L (22-30); Chloride 104 mmol/L (98-107); Estimated CRCL calculation 58 ml/min; Estimated Glomerular Filt Rate 59; Glucose 116 mg/dL (65-110); Lipase 258 U/L (23-300); Osmolality Calculated 293 mOsm/kg (285-295); Potassium 4.3 mmol/L (3.4-5.0); Sodium 141 mmol/L (137-145); Total Protein 7.0 g/dL (6.3-8.2)
[2025-02-01 22:42] LABS: Pregnancy On Board Control Positive
[2025-02-01] MEDS: CEPHALEXIN 500 MG CAPSULE PO (22:56)
[2025-02-01 23:05] VITALS: BP 124/76; PULSE 74; RESP 18; O2SAT 99
--- NOTE | 2025-02-04 12:14 | PC.NURSE ---
URINE CULTURE FINAL SHOWING LESS THAN 10,000 COLONY FORMING UNITS OF BACTERIA PER MILLILITER OF URINE PER DR PHELPS NO FURTHER ORDERS NEEDED
== END 2025-02-01 23:05 | disposition home or self-care (01) ==
PROVIDERS: Emergency Provider Emergency Medicine; PCP Family Medicine
DX: N30.01 Acute cystitis with hematuria (principal); K21.9 Gastro-esophageal reflux disease without esophagitis
CPT/HCPCS: 36415; 80053; 81001; 81025; 83690; 85025; 87086; 99283; A9270